=== PATIENT | female | born 1960 | race Caucasian/White ===

== ENCOUNTER 2017-02-13 12:38 | Emergency (ER) | payer MEDICARE, OTHER ==
[2017-02-13 12:54] VITALS: RESP 18
--- NOTE | 2017-02-13 13:40 | ED ---
Extremity Problem HPI - General Chief complaint: Extremity Problem,Nontraumatic Stated complaint: Knee Pain Time Seen by Provider: 02/13/17 13:08 Source: patient, RN notes reviewed, old records reviewed Mode of arrival: wheelchair Limitations: no limitations - History of Present Illness Initial comments: Is a 56-year-old female presents emergency Department with chief complaint chronic knee pain. Patient reports that she's been seen by Dr. Patiño and he only or not right for any narcotic pain medication. She reports that she recently discharged from [facility]. She reports that her pain seems to be worse with ambulation. She states that she's had no new injuries or falls or reasons to cause the new or worsening onset of bilateral knee pain. She denies any calf pain. Patient denies any recent fever, chills, shortness of breath, chest pain, back pain, abdominal pain, nausea vomiting, numbness or tingling, dysuria or hematuria, constipation or diarrhea, headaches or visual changes, or any other current symptoms - Related Data Home Medications Medication Instructions Recorded Confirmed ARIPiprazole [Abilify] 15 mg PO HS 11/20/15 04/24/16 Chlorthalidone [Chlorthalidone] 25 mg PO DAILY 11/20/15 04/24/16 Levothyroxine Sodium [Synthroid] 100 mcg PO DAILY 11/20/15 04/24/16 Omeprazole [PriLOSEC] 40 mg PO AC-BRKFST 11/20/15 04/24/16 Suvorexant [Belsomra] 20 mg PO HS 11/20/15 04/24/16 clonazePAM [KlonoPIN] 0.5 mg PO DAILY PRN 11/20/15 04/24/16 Previous Rx's Medication Instructions Recorded Ciprofloxacin HCl [Cipro] 500 mg PO Q12HR #14 tablet 04/25/16 Phenazopyridine [Pyridium] 100 mg PO TID #9 tablet 04/25/16 Acetaminophen-Codeine 300-30mg 1 tab PO Q6H PRN #12 tablet 02/13/17 [Tylenol #3] Allergies Allergy/AdvReac Type Severity Reaction Status Date / Time bupropion HCl Allergy Swelling Verified 02/13/17 12:54 [From Wellbutrin] Review of Systems ROS Statement: Those systems with pertinent positive or pertinent negative responses have been documented in the HPI. ROS Other: All systems not noted in ROS Statement are negative. Past Medical History Past Medical History: GERD/Reflux, Hypertension, Osteoarthritis (OA), Sleep Apnea/CPAP/BIPAP, Thyroid Disorder History of Any Multi-Drug Resistant Organisms: None Reported Past Surgical History: Section, Tonsillectomy Additional Past Surgical History / Comment(s): bunion left foot, left knee scope ,colonoscopy, egd Past Anesthesia/Blood Transfusion Reactions: No Reported Reaction Past Psychological History: Bipolar Smoking Status: Current every day smoker Past Alcohol Use History: Occasional Past Drug Use History: None Reported - Past Family History Mother Family Medical History: Myocardial Infarction ([place]) Father Family Medical History: Myocardial Infarction ([place]) Brother(s) Family Medical History: Mitral Valve Prolapse (MVP) General Exam - General Exam Comments Initial Comments: Well-appearing 56-year-old female. Patient is somewhat tearful and anxious on exam. Limitations: no limitations General appearance: alert, in no apparent distress Head exam: Present: atraumatic, normocephalic, normal inspection Eye exam: Present: normal appearance, PERRL, EOMI. Absent: scleral icterus, conjunctival injection, periorbital swelling ENT exam: Present: normal exam, mucous membranes moist Neck exam: Present: normal inspection Respiratory exam: Present: normal lung sounds bilaterally Cardiovascular Exam: Present: regular rate, normal rhythm, normal heart sounds. Absent: systolic murmur, diastolic murmur, rubs, gallop, clicks GI/Abdominal exam: Present: soft, normal bowel sounds. Absent: distended, tenderness, guarding, rebound, rigid Extremities exam: Present: normal inspection, other (Patient reports bilateral knee pain. Patient was seen ambulating with minimal limp to the bathroom. Patient has full range of motion. No evidence of erythema or significant swelling. She denies any recent trauma to cause New injury. ) Back exam: Present: normal inspection Neurological exam: Present: alert, oriented X3, CN II-XII intact Psychiatric exam: Present: normal affect, normal mood Skin exam: Present: warm, dry, intact, normal color. Absent: rash Course Vital Signs 02/13/17 12:51 Temperature 98.7 F Pulse Rate 73 Respiratory 18 Rate Blood Pressure 142/86 O2 Sat by Pulse 95 Oximetry Medical Decision Making - Medical Decision Making This is a 56-year-old female with chief complaint of chronic knee pain. He denies any recent injury Several cause of pain. Patient has full range of motion. No significant calf tenderness or knee tenderness to palpation. She was recently discharged from [facility]. She is somewhat tearful on exam. She reports that she is just been dealing with chronic depression and anxiety. She denies any suicidal or homicidal thoughts. She reports that Dr. Patiño will write her for tramadol. She reports that she's trying to see a second opinion. She states turning and manage her pain management. She reports that she's been having his chronic knee pain for many years. She's tried injections and talked about replacement in that is not what she would like to do. Patient was informed that I can only write her for a few Tylenol with codeine as well as taking tramadol for pain. Patient also advised anti-inflammatory medicine. Discussed close follow-up with orthopedic physician and given a name and number for other orthopedic physicians in the area. Patient agrees treatment plan will comply. Return parameters were discussed. Disposition Clinical Impression: Chronic pain of both knees Disposition: HOME SELF-CARE Condition: Good Instructions: Knee Pain (ED) Additional Instructions: Patient advised to take care of previous prescriptions for tramadol, anti- inflammatory medicine such as Motrin or Tylenol. Patient denies the intake for Tylenol 3 only for severe pain. He must follow-up with primary care physician for further pain medication. Prescriptions: Acetaminophen-Codeine 300-30mg [Tylenol #3] 1 tab PO Q6H PRN #12 tablet PRN Reason: Pain Referrals: Kelly Shook DO [Primary Care Provider] - 1-2 days Dom Edwards DO [Doctor of Osteopathic Medicine] - 1-2 days Time of Disposition: 13:37
[2017-02-13 13:44] VITALS: BP 132/84; PULSE 80; TEMP 98
== END 2017-02-13 13:52 | disposition home or self-care (01) ==
LOC: EC 12:38
DX: G89.29 Other chronic pain (principal); M25.562 Pain in left knee; M25.561 Pain in right knee; K21.9 Gastro-esophageal reflux disease without esophagitis; I10 Essential (primary) hypertension; M19.90 Unspecified osteoarthritis, unspecified site; E07.9 Disorder of thyroid, unspecified; F31.9 Bipolar disorder, unspecified; F17.200 Nicotine dependence, unspecified, uncomplicated; Z79.899 Other long term (current) drug therapy; Z88.8 Allergy status to other drugs, medicaments and biological substances
CPT/HCPCS: 99283

== ENCOUNTER → 2017-05-01 | Outpatient (CLI) | payer MEDICARE, OTHER ==
[2017-05-01 17:38] LABS: EKG EKG PERFORMED
[2017-05-01 17:57] LABS: Appearance,Urine Clear (Clear); Basophils # (A) 0.1 k/uL (0-0.2); Basophils % (A) 1 %; Bilirubin,Urine Negative (Negative); CH 33.5; CHCM 36.4; Eosinophils # (A) 0.4 k/uL (0-0.7); Eosinophils % (A) 3 %; Glucose,Urine (UA) Negative (Negative); HCT 47.6 % (34.0-46.0); HDW 2.65; HGB 16.6 gm/dL (11.4-16.0); Ketones,Urine Negative (Negative); Leukocyte Esterase,Urine Negative (Negative); Luc # (Auto) 0.19; Luc % (Auto) 2; Lymphocytes # (A) 3.2 k/uL (1.0-4.8); Lymphocytes % (A) 28 %; MCH 32.1 pg (25.0-35.0); MCHC 34.8 g/dL (31.0-37.0); MCV 92.3 fL (80.0-100.0); Mean Platelet Volume 7.2; Monocytes # (A) 0.6 k/uL (0-1.0); Monocytes % (A) 5 %; Neutrophils # (A) 6.8 k/uL (1.3-7.7); Neutrophils % (A) 61 %; Nitrite,Urine Negative (Negative); PH, Urine 5.5 (5.0-8.0); Protein,Urine Negative (Negative); RBC 5.16 m/uL (3.80-5.40); RDW 14.1 % (11.5-15.5); Specific Gravity,Urine 1.005 (1.001-1.035); UA Billing (MACRO vs. MICRO) CHEM; Urobilinogen,Urine <2.0 mg/dL (<2.0); WBC 11.2 k/uL (3.8-10.6); WBC (Perox) 11.03
[2017-05-01 18:04] LABS: Partial Thromboplastin Time 23.7 sec (22.0-30.0)
[2017-05-01 18:07] LABS: ALT 52 U/L (9-52); AST 24 U/L (14-36); Alkaline Phosphatase 73 U/L (38-126); Anion Gap 9 mmol/L; Blood Urea Nitrogen 20 mg/dL (7-17); Calcium 9.1 mg/dL (8.4-10.2); Carbon Dioxide 25 mmol/L (22-30); Chloride 103 mmol/L (98-107); Glucose 91 mg/dL (74-99); Non-African American GFR(MDRD) 48 (>60 ml/min/1.73 sqM); Potassium 3.7 mmol/L (3.5-5.1); Sodium 137 mmol/L (137-145); Total Bilirubin 0.3 mg/dL (0.2-1.3); Total Protein 7.2 g/dL (6.3-8.2)
== END | disposition home or self-care (01) ==
LOC: LABPAT 17:30
PROVIDERS: ATTEND Orthopaedic Surgery Sports Medicine
DX: Z01.812 Encounter for preprocedural laboratory examination (principal); Z01.818 Encounter for other preprocedural examination
CPT/HCPCS: 80053; 81003; 85025; 85610; 85730; 87070; 93005

== ENCOUNTER → 2017-05-06 | Outpatient (CLI) | payer MEDICARE, OTHER ==
--- NOTE | 2017-05-07 08:14 | MR ---
EXAMINATION TYPE: MR cspine/patricia wo con DATE OF EXAM: 05/06/2017 COMPARISON: NONE HISTORY: Neck and low back pain CONTRAST: Performed utilizing 0 mL intravenous MultiHance gadolinium contrast. TECHNIQUE: Multiplanar multiecho imaging on a 3.0 Heidi magnet is performed through the cervical spin e. FINDINGS: The craniovertebral junction is normal. Vertebral body alignment is normal. C7-T1: No focal disc herniation or significant disc bulge is evident. No spinal canal stenosis or n eural foraminal stenosis is present. C6-7: Broad-based disc bulge has mild anterior thecal sac flattening. No cord contact is evident. No spinal canal stenosis or neural foraminal stenosis is present.. C5-6: Broad-based disc bulge has mild anterior thecal sac compression. No spinal canal stenosis or ne ural foraminal stenosis present.. C4-5: There is mild left paracentral disc bulging with mild anterior thecal sac compression. No cord contact is evident. No spinal canal stenosis present. Mild foraminal narrowing is present.. C3-4: There is some mild left paracentral disc bulging with mild anterior thecal sac compression. No spinal canal stenosis stenosis present. There is some mild foraminal narrowing. C2-3: Broad-based central disc bulge has mild to moderate anterior thecal sac compression. No spinal canal stenosis or neural foraminal stenosis is present.. IMPRESSIONS: 1. Multilevel disc bulging with mild to moderate anterior thecal sac compression. No stenosis or cord contact is evident. 2. Mild foraminal narrowing. EXAMINATION TYPE: MR ashli/patricia wo con DATE OF EXAM: 05/06/2017 COMPARISON: NONE HISTORY: Neck and low back pain CONTRAST: 0 mL intravenous MultiHance. TECHNIQUE: Multiplanar, multisequence images of the lumbar spine were acquired. FINDINGS: Cord terminates at the L2 level. Endplate changes are noted at the anterior L2-3 disc leve l. L5-S1: No significant disc bulge or disc herniation. No spinal canal stenosis. No foraminal stenosi s. Facet hypertrophy is present.. L4-L5: No significant disc bulge or disc herniation. No spinal canal stenosis. No foraminal stenosi s. . L3-L4: No significant disc bulge or disc herniation. No spinal canal stenosis. No foraminal stenosi s. . L2-L3: Broad-based disc bulge is moderate anterior thecal sac flattening. No AP spinal canal stenosis present. Facet hypertrophy is posterior lateral thecal sac compression. Neural foramen are patent. L1-L2: No significant disc bulge or disc herniation. No spinal canal stenosis. No foraminal stenosi s. . T12-L1: No significant disc bulge or disc herniation. No spinal canal stenosis. No foraminal stenos is. . Disc desiccation is throughout the lumbar spine. IMPRESSION: 1. Disc bulging L2-3 with moderate anterior thecal sac flattening. No stenosis is present. 2. Facet hypertrophy L5-S1.
== END | disposition home or self-care (01) ==
LOC: RADMRIMAIN 12:37
PROVIDERS: ATTEND Physician Assistant
DX: M99.71 Connective tissue and disc stenosis of intervertebral foramina of cervical region (principal); M50.21 Other cervical disc displacement, high cervical region; G95.29 Other cord compression; M51.26 Other intervertebral disc displacement, lumbar region; M46.07 Spinal enthesopathy, lumbosacral region
CPT/HCPCS: 72141; 72148

== ENCOUNTER 2017-05-18 09:30 | Inpatient (IN) | payer MEDICARE, OTHER ==
[2017-05-04 13:36] VITALS: BMI 34.7
[~2017-05-18 09:30] MED LIST: ACETAMINOPHEN TAB 500 MG TAB PO ONE; DEXAMETHASONE SOD PHOSPHATE 10 MG/ML 1 ML VIAL IV ONE; HYDROmorphone 1 MG/ML 1 ML SYRINGE IVP PRN; LIDOCAINE 1% 20 ML VIAL (10MG/ML) FOR IV START INTRADERMA PRN; MELOXICAM 7.5 MG TAB PO ONE; MIDAZOLAM 2 MG/2 ML VIAL IV PRN; ONDANSETRON 4 MG/2 ML VIAL IVP ONE; SCOPOLAMINE 1.5MG/72HR PATCH TRANSDERM ONE; TRANEXAMIC ACID 1,000 MG in SODIUM CHLORIDE 0.9% 100 ML IVPB ONE; ceFAZolin 2 GM in SODIUM CHLORIDE 0.9% 100 ML IVPB ONE
[2017-05-18] MEDS ORDERED: ROPIVACAINE 246.25 MG, EPINEPHrine 0.5 MG, KETOROLAC 30 MG, cloNIDine HCL/PF 80 MCG, WA... MISCELLANE ONE ×5 (09:51)
[2017-05-18] MEDS ORDERED: LIDOCAINE 1% 20 ML VIAL (10MG/ML) FOR IV START INTRADERMA ONE (10:29)
[2017-05-18] MEDS: LACTATED RINGERS 1,000 ML IV SCH ×4 (10:59→20:55)
[2017-05-18] MEDS ORDERED: MIDAZOLAM 2 MG/2 ML VIAL IVP ONE (11:20)
[2017-05-18] MEDS ORDERED: fentaNYL (PF) 50 MCG/ML 2 ML AMP ONE (11:45)
[2017-05-18] MEDS ORDERED: MIDAZOLAM 2 MG/2 ML VIAL ONE (11:45)
[2017-05-18] MEDS ORDERED: PROPOFOL 10 MG/ML 20 ML VIAL IV ONE (11:45)
[2017-05-18] MEDS ORDERED: ROPIVACAINE 5 MG/ML 30 ML VIAL MISCELLANE ONE (12:22)
[2017-05-18] MEDS ORDERED: LACTATED RINGERS 1,000 ML IV ONE (13:17)
[2017-05-18] MEDS ORDERED: HYDROcodone/APAP 7.5-325MG 1 EACH TAB PO PRN (13:51)
[2017-05-18] MEDS ORDERED: MAGNESIUM HYDROXIDE 2,400 MG/10 ML CUP PO PRN (13:51)
[2017-05-18] MEDS ORDERED: traMADol 50 MG TAB PO PRN (13:51)
[2017-05-18] MEDS ORDERED: NALOXONE 0.4 MG/ML 1 ML VIAL IV PRN ×2 (13:51→15:39)
[2017-05-18] MEDS ORDERED: NA PHOS,M-B/NA PHOS,DI-BA 133 ML ENEMA RECTAL PRN (13:51)
[2017-05-18] MEDS ORDERED: DIAZEPAM 5 MG TAB PO PRN (13:51)
[2017-05-18] MEDS ORDERED: BISACODYL 10 MG SUPP RECTAL PRN (13:51)
[2017-05-18] MEDS ORDERED: hydrOXYzine PAMOATE 25 MG CAP PO PRN (13:51)
[2017-05-18] MEDS ORDERED: HYDROmorphone 1 MG/ML 1 ML SYRINGE IVP PRN ×2 (13:51)
[2017-05-18] MEDS ORDERED: ACETAMINOPHEN TAB 325 MG TAB PO PRN (13:51)
[2017-05-18] MEDS ORDERED: TEMAZEPAM 15 MG CAP PO PRN (13:51)
[2017-05-18] MEDS ORDERED: ONDANSETRON 4 MG/2 ML VIAL IVP PRN (13:51)
--- NOTE | 2017-05-18 14:21 | XR ---
EXAMINATION TYPE: XR knee limited LT, 2 VIEWS DATE OF EXAM ORDERED: 05/18/2017 HISTORY: Status post left knee arthroplasty. COMPARISON: None. FINDINGS: A left knee arthroplasty has been performed. Prosthetic elements appear in good position. There is subcutaneous and intra-articular air. IMPRESSION: STATUS POST LEFT ARTHROPLASTY.
[2017-05-18] MEDS ORDERED: diphenhydrAMINE 50 MG/ML 1 ML VIAL IVP PRN (15:39)
[2017-05-18] MEDS ORDERED: PROMETHAZINE INJ 6.25 MG in SODIUM CHLORIDE 0.9% 50 ML IVPB PRN (15:39)
[2017-05-18] MEDS ORDERED: METOCLOPRAMIDE 5 MG/ML 2 ML VIAL IVP PRN (15:39)
[2017-05-18] MEDS ORDERED: MORPHINE SULFATE 4 MG/ML SYRINGE IVP PRN (15:39)
[2017-05-18 17:16] VITALS: RESP 16
[2017-05-18] MEDS ORDERED: BUTALB/APAP/CAFF 50-325-40MG TAB PO PRN (17:18)
[2017-05-18] MEDS: clonazePAM 0.5 MG TAB PO SCH (20:48)
[2017-05-18] MEDS: ASPIRIN 325 MG TAB PO SCH (20:48)
[2017-05-18] MEDS: ARIPiprazole 15 MG TAB PO SCH (20:48)
[2017-05-18] MEDS: SENNOSIDES-DOCUSATE SODIUM 1 EACH TAB PO SCH (20:52)
[2017-05-18] MEDS: ceFAZolin 2 GM in SODIUM CHLORIDE 0.9% 100 ML IVPB SCH (20:58)
[2017-05-18] MEDS ORDERED: NON-FORMULARY DRUG (Suvorexant [Belsomra] 20 MG) PO SCH (21:00)
[2017-05-18] MEDS: NICOTINE POLACRILEX 2 MG GUM BUCCAL PRN (21:01)
[2017-05-18] MEDS: GABAPENTIN 300 MG CAP PO SCH (21:19)
[2017-05-19] MEDS: ceFAZolin 2 GM in SODIUM CHLORIDE 0.9% 100 ML IVPB SCH (03:34)
[2017-05-19] MEDS: LEVOTHYROXINE 100 MCG TAB PO SCH (06:03)
[2017-05-19] MEDS: NICOTINE POLACRILEX 2 MG GUM BUCCAL PRN ×5 (06:04→23:24)
[2017-05-19 07:30] LABS: Basophils # (A) 0.1 k/uL (0-0.2); Basophils % (A) 0 %; CH 33.5; CHCM 36.8; Eosinophils # (A) 0.1 k/uL (0-0.7); Eosinophils % (A) 1 %; HCT 37.7 % (34.0-46.0); HDW 2.71; Luc # (Auto) 0.18; Luc % (Auto) 1; Lymphocytes # (A) 2.6 k/uL (1.0-4.8); Lymphocytes % (A) 17 %; MCH 32.3 pg (25.0-35.0); MCHC 35.4 g/dL (31.0-37.0); MCV 91.3 fL (80.0-100.0); Mean Platelet Volume 7.7; Monocytes # (A) 0.9 k/uL (0-1.0); Monocytes % (A) 6 %; Neutrophils # (A) 11.3 k/uL (1.3-7.7); Neutrophils % (A) 75 %; RBC 4.14 m/uL (3.80-5.40); RDW 13.9 % (11.5-15.5); WBC 15.2 k/uL (3.8-10.6); WBC (Perox) 16.42
[2017-05-19 07:36] LABS: HGB 13.4 gm/dL (11.4-16.0)
--- NOTE | 2017-05-19 08:47 | P.PN ---
Progress Note - Text Date:05/19 Time:743am Patient is status post tkr. Patient seen this morning with VAS score of 0. c/o of pruritus, no c/o nausea/vomiting, comfortable and doing well.
[2017-05-19] MEDS: CHLORTHALIDONE 25 MG TAB PO SCH (09:02)
[2017-05-19] MEDS: ASPIRIN 325 MG TAB PO SCH ×2 (09:02→21:11)
[2017-05-19] MEDS: PANTOPRAZOLE 40 MG TABLET PO SCH (09:02)
[2017-05-19] MEDS: GABAPENTIN 300 MG CAP PO SCH ×3 (09:02→23:13)
[2017-05-19] MEDS: LACTATED RINGERS 1,000 ML IV SCH ×2 (09:03→17:47)
[2017-05-19] MEDS: HYDROcodone/APAP 7.5-325MG 1 EACH TAB PO PRN ×3 (09:03→20:30)
--- NOTE | 2017-05-19 10:43 | P.PN ---
Subjective Principal diagnosis: Status post left total knee arthroplasty Patient is seen at bedside this morning. She is postop day #1 from a left total knee arthroplasty. She has mild pain at the surgical site as expected but denies any new complaints. She denies numbness, tingling or calf pain. Review of systems is negative for fever, chills, chest pain, shortness of breath or other Objective - Vital Signs Vital signs: Vital Signs Temp 98.5 F 05/19/17 07:29 Pulse 57 L 05/19/17 07:29 Resp 16 05/19/17 01:00 BP 109/59 05/19/17 07:29 Pulse Ox 94 L 05/19/17 07:29 Intake & Output 05/18/17 05/19/17 05/19/17 18:59 06:59 18:59 Intake Total 1520 1400 Output Total 700 1500 Balance 820 -100 Intake: IV 1520 Intake, IV Titration 1400 Amount Lactated Ringers 1,000 ml 1100 @ 100 mls/hr IV .Q10H HUGO Rx#:[id number] ceFAZolin 2 gm In Sodium 300 Chloride 0.9% 100 ml @ 100 mls/hr IVPB Q8H HUGO Rx#:[id number] Output: Urine 600 1500 Estimated Blood Loss 100 Other: Voiding Method Indwelling Catheter - Exam Inspection reveals a benign surgical wound. There is no active bleeding or drainage. Neurovascular status is intact throughout the lower extremity with motor and sensation fully intact. Calf is soft and nontender. 2+ dorsalis pedis pulse and less than 2 second cap refill is present. - Constitutional General appearance: Present: no acute distress - Psychiatric Psychiatric: Present: A&O x's 3, appropriate affect, intact judgment & insight - Labs CBC & Chem 7: 05/19/17 06:39 Labs: Abnormal Lab Results - Last 24 Hours (Table) 05/19/17 Range/Units 06:39 WBC 15.2 H (3.8-10.6) k/uL Neutrophils # 11.3 H (1.3-7.7) k/uL Assessment and Plan (1) Osteoarthritis of left knee Narrative/Plan: She will continue with routine postop orthopedic protocol including pain management, wound care, physical therapy, DVT prophylaxis and medical management. Expect that she will discharge to home tomorrow Status: Acute Time with Patient: Less than 30
[2017-05-19] MEDS: MULTIVITAMINS, THERA 1 EACH TAB PO SCH (11:25)
[2017-05-19] MEDS: clonazePAM 0.5 MG TAB PO SCH ×2 (11:29→21:12)
[2017-05-19] MEDS: HYDROmorphone 1 MG/ML 1 ML SYRINGE IVP PRN ×3 (11:32→21:16)
[2017-05-19] MEDS ORDERED: HYDROmorphone 1 MG/ML 1 ML SYRINGE IVP STA (12:34)
--- NOTE | 2017-05-19 14:24 | P.CONS ---
History of Present Illness - Reason for Consult Consult date: 05/19/17 Medical management - Chief Complaint left knee osteoarthritis - History of Present Illness This is a 57-year-old female with past medical history noted below significant for severe osteoarthritis of the left knee that failed conservative management. Patient was admitted to the hospital and underwent an elective total left knee arthroplasty. She is postoperative day #1. She tolerated the procedure well. Her pain is relatively well-controlled. She was up with physical therapy earlier with no difficulty. I was asked to see her for medical management. Review of Systems Review of system: 14 points review of systems were obtained and were negative except to what were mentioned in the HPI. Past Medical History Past Medical History: GERD/Reflux, Hypertension, Osteoarthritis (OA), Sleep Apnea/CPAP/BIPAP, Thyroid Disorder Additional Past Medical History / Comment(s): no cpap History of Any Multi-Drug Resistant Organisms: None Reported Past Surgical History: Section, Tonsillectomy Additional Past Surgical History / Comment(s): bunion left foot, left knee scope ,colonoscopy, egd Past Anesthesia/Blood Transfusion Reactions: No Reported Reaction Smoking Status: Current every day smoker - Past Family History Mother Family Medical History: Myocardial Infarction ([place]) Father Family Medical History: Myocardial Infarction ([place]) Brother(s) Family Medical History: Mitral Valve Prolapse (MVP) Medications and Allergies Home Medications Medication Instructions Recorded Confirmed Type ARIPiprazole [Abilify] 15 mg PO HS 11/20/15 05/18/17 History Chlorthalidone [Chlorthalidone] 25 mg PO DAILY 11/20/15 05/18/17 History Levothyroxine Sodium [Synthroid] 100 mcg PO DAILY 11/20/15 05/18/17 History Omeprazole [PriLOSEC] 40 mg PO AC-BRKFST 11/20/15 05/18/17 History Suvorexant [Belsomra] 20 mg PO HS 11/20/15 05/18/17 History clonazePAM [KlonoPIN] 0.5 mg PO DAILY PRN 11/20/15 05/18/17 History Butalb/APAP/Caff 50-325-40Mg 1 tab PO Q4H PRN 05/04/17 05/18/17 History [Fioricet 50-325-40] Gabapentin [Neurontin] 300 mg PO TID 05/04/17 05/18/17 History Meloxicam 7.5 mg PO BID 05/04/17 05/18/17 History traMADol HCL [Ultram] 50 mg PO Q6H PRN 05/04/17 05/18/17 History Oxybutynin Chloride [Ditropan XL] 5 mg PO DAILY 05/18/17 05/18/17 History tiZANidine HCL [Zanaflex] 4 mg PO BID 05/18/17 05/18/17 History Aspirin 325 mg PO BID #60 tab 05/19/17 Rx Docusate [Colace] 100 mg PO BID #60 capsule 05/19/17 Rx HYDROcodone/APAP 7.5-325MG [[place] 1 - 2 each PO Q6HR PRN #90 tab 05/19/17 Rx 7.5-325] Allergies Allergy/AdvReac Type Severity Reaction Status Date / Time bupropion HCl Allergy tongue Verified 05/04/17 13:26 [From Wellbutrin] Swelling Physical Exam Vitals: Vital Signs Temp Pulse Pulse Pulse Resp BP Pulse Ox 05/19/17 08:00 58 L 57 L 16 05/19/17 07:29 98.5 F 57 L 109/59 94 L 05/19/17 01:00 97.0 F L 56 L 16 95/48 93 L 05/18/17 19:00 97.0 F L 63 16 82/55 94 L 05/18/17 16:45 108/74 05/18/17 16:30 139/63 05/18/17 16:15 104/57 05/18/17 16:00 113/57 05/18/17 15:45 120/59 05/18/17 15:30 116/56 05/18/17 15:15 113/67 05/18/17 15:00 98.1 F 54 L 16 119/61 91 L Intake and Output 05/18/17 05/19/17 05/19/17 22:59 06:59 14:59 Intake Total 400 1000 Output Total 1500 Balance 400 -500 Intake: Intake, IV Titration 400 1000 Amount Lactated Ringers 1,000 ml 300 800 @ 100 mls/hr IV .Q10H HUGO Rx#:[id number] ceFAZolin 2 gm In Sodium 100 200 Chloride 0.9% 100 ml @ 100 mls/hr IVPB Q8H HUGO Rx#:[id number] Output: Urine 1500 Other: Voiding Method Indwelling Catheter Indwelling Catheter Weight 97.522 kg Patient Weight 05/20/17 06:59 Weight 97.522 kg General: The patient is awake and alert, in no distress Eye: there is normal conjunctiva bilaterally. Neck: The neck is supple, there is no JVD. Cardiovascular: Normal S1-S2, no S3-S4, no murmurs. Respiratory: Lungs clear to auscultation bilaterally Gastrointestinal: Abdomen is soft, nontender Musculoskeletal: There is no pedal edema. Neurological:. Speech is normal. Skin: Skin is warm and dry Results CBC & Chem 7: 05/19/17 06:39 Labs: Abnormal Lab Results - Last 24 Hours (Table) 05/19/17 Range/Units 06:39 WBC 15.2 H (3.8-10.6) k/uL Neutrophils # 11.3 H (1.3-7.7) k/uL Assessment and Plan Plan: 1. Postoperative day #1 status post elective total left knee arthroplasty 2. DVT prophylaxis with full dose aspirin twice daily as directed by orthopedics 3. Hypothyroidism, maintained on Synthroid 4. Morbid obesity Today, I reviewed her medication list and lab work results. Continue current regimen. Thank you very much for the consultation. I will continue to follow up on the patient closely.
--- NOTE | 2017-05-19 15:04 | OP ---
OPERATIVE REPORT DATE OF PROCEDURE: 05/18/2017. PREOPERATIVE DIAGNOSIS:: Left knee osteoarthrosis. POSTOPERATIVE DIAGNOSIS:: Left knee osteoarthrosis. OPERATION:: Left total knee arthroplasty. ESTIMATED BLOOD LOSS:: 100 cc. SPECIMEN TAKEN:: SURGEON: Sg Patiño MD. DISTRICT DIRECTOR: Roderick Ramirez PA-C. ANESTHESIA: Spinal with sedation. ESTIMATED BLOOD LOSS: TOURNIQUET TIME: 47 minutes at 250 mmHg. COMPLICATIONS: None apparent. DRAINS: None. DISPOSITION: Post anesthesia care unit. INDICATIONS: Dav is a 57-year-old female with longstanding history of left knee pain. History and physical examination consistent with advanced left knee osteoarthrosis. She has been through significant nonoperative management to this point. Further treatment options were discussed and she has decided to go forward with a left total knee arthroplasty. The risks of procedure were discussed with her in detail. These risks include, but are not limited to, risk of infection, nerve damage, bleeding, pain and a small risk of deep vein thrombosis which could lead to a fatal pulmonary embolism. There is also a risk of loosening of the implant which could require revision operation. The patient understands these risks. All of her questions were answered to her satisfaction. An appropriate informed consent was obtained. NARRATIVE:: The patient is identified in the preoperative holding area. Surgical sites marked by both the patient and myself. She was given 2 g of Ancef IV for prophylactic purposes. She was then transferred to the operative suite, where she was placed supine on the operating room table. Spinal anesthetic was then administered and dosed by the anesthesia department without apparent complication. Examination under anesthesia was then performed. The patient was 2 to 3 degrees shy of full extension. She had 100 degrees of flexion in the medial collateral ligament, lateral collateral ligament. Posterior cruciate ligaments were stable. A tourniquet was then placed high on the left upper thigh, well-padded in preparation for surgery. The patient's left lower extremity then prepped and draped in the usual sterile fashion. A standard surgical pause was undertaken to ensure that we were operating on the correct site and that appropriate preoperative antibiotics had been given. All staff in the room were in agreement and we proceeded. The outlines of the patella were marked with a surgical pen. A planned 12 cm vertical incision centered over the patella was marked with a surgical pen. The leg was exsanguinated with an Esmarch dressing. The knee was then flexed and the tourniquet was inflated to 250 mmHg. The total tourniquet time for the procedure was 47 minutes. The incision was then made with a 10 blade scalpel. Dissection was carried down sharply to the overlying fascia. Great care was taken to minimize the skin flaps. The knee was then exposed using a standard medial parapatellar approach. A small cuff of quadriceps tendon was then left for suturing. She was in a bit of varus preoperatively. A very minimal medial release was then made. The superficial medial collateral ligament was dissected off of the bone around the posterior aspect of the proximal tibia. The medial meniscus was then excised as well. The lateral meniscus was also released anteriorly. The leg was then externally rotated. The patella was everted. The knee was flexed. The retractors were then placed to protect the collateral ligaments. I then proceeded to removed the infrapatellar fat pad. This was excised sharply tangentially with fibers of the patellar tendon. I then proceeded to remove the peripheral osteophytes. This was done with a rongeur. I then proceeded with the distal femoral resection. She did have near full extension. The planned 9-mm resection was then done. The femoral canal was then entered in midline of the femur with approximately 10 mm anterior to the origin of the posterior cruciate ligament. The kt was then advanced down the center of the femur and placed intramedullary. Based on preoperative radiographs, the angle between the anatomic and mechanical axis of the femur was approximately 4 to 5 degrees. The valgus angle of the distal femoral cutting guide was then set at 4 degrees for the left knee. The distal femoral cutting guide was then advanced over the intramedullary kt. This was seated firmly against the femur. I then as mentioned planned to take 9 mm off the distal femur. The cutting block was then secured onto the femur with pins. The jig was then removed and the distal femoral cut was made through the slot of the block. The pins were then removed from the distal femoral cut and the cutting block was removed. The accuracy of the distal femoral cut was checked with 2 flat bars. I then proceeded to femoral sizing. The posterior referencing sizing guide was held firmly against the resected distal surface of the femur. The posterior condyles were resting on the posterior plane of the guide. The sizing stylus was then placed onto the anterior femur. This was measured as a size 6. I then assessed for rotation. The plan was for 3 degrees of external rotation. Three degrees of external rotation was placed onto the jig. These holes were then marked. I then confirmed the rotation by 3 separate methods. This was done using the epicondylar axis as well as Whitesides line and posterior referencing. It was deemed that the external rotation was proper. I then went forward with placing the femoral cutting block. This was placed over the previously placed pin holes. The janee wing was then placed on the anterior slot to ensure that we would not notch the anterior femur with the anterior femoral cut. I then proceeded with the anterior femoral cut. This was flushed with the anterior cortex of the femur. The posterior cuts were then made followed by the anterior chamfer cut and then the posterior chamfer cut. The cutting block was then removed. Throughout the resection, the collateral ligaments were protected with retractors. I then placed a trial size 6 femur. It fit very nicely Medial-lateral and fit flush with the distal end of the femur. The drill holes were then made. I then proceeded with the tibial cut. I planned for a cruciate-retaining knee. The guide was placed in separate varus valgus and for slope. The height was set for approximate 2 mm resection from the medial tibial plateau, which was the lower side. I was happy with the alignment and the amount of resection. The cutting block was then pinned to the proximal tibia. The alignment kt was removed and the proximal tibia was resected with a reciprocating saw. Again this was done with retractors protecting the collateral ligaments as well as the posterior cruciate ligament. I then proceeded to evaluate the flexion and extension gaps. A 10-mm block was placed. The flexion-extension gaps were equal. I then proceeded with resection of posterior osteophytes. She had very minimal posterior osteophytes. This was done using a curved osteotome. This resected the posterior osteophytes and posterior capsular stripping was also down off the posterior aspect of the femur. The osteophytes were then removed. I then proceeded with resection of the patella. The thickness of patella was measured using the caliper. The thickness was 22 mm. The thickness of the anticipated patellar dome was then taken into account. The resection was then performed and confirmed to be equal in 4 quadrants using a caliper. Approximately 14 mm of bone remained after the resection. A 29 x 8-mm standard patella trial was then placed. The holes were drilled. The trial was then placed. I then proceeded with sizing the tibial plate and a size D tibial plate fit very nicely. I then placed the trial femur with the tibial tray and patellar button. The 10-mm trial tibial insert was also placed. The components fit very nicely. She had a full extension and flexion. The extension and flexion gaps were equal and stable to both varus and valgus stress. The patella tracked appropriately. The tibial tray rotation was then marked with a Bovie. This was externally rotated properly. I then proceeded with tibial preparation. I first drilled the femoral holes and then removed the femoral component. The tibial tray was then set up for proper external rotation as well as medial lateral placement onto the tibia. It was then pinned into place. I then proceeded with punching the keel. I then decided to proceed with cementing of all of our components. The knee was thoroughly irrigated with sterile saline solution via pulse lavage. The lateral geniculate artery was identified and cauterized. All blood was removed from the bone of the tibia, femur and patella with pulse lavage. I then proceeded with cementing. Two packs of antibiotic bone cement were prepared on the back table by the medical or surgical instrument maker. I then proceeded to proceed with cementing the tibia first. The cement was impacted in the keel as well as deeply seated in the bone. A second coat of cement was then placed. The tibia was then impacted into place. Excess cement was removed with Cushings and jokers. I then proceeded with cementing of the femoral component. The femoral component was also cemented using standard technique. Excess cement was removed. A 10-mm trial insert was then placed into the knee. It was brought into full extension with a constant axial load placed until the cement had hardened. The patellar component was then cemented. This held firmly with a compressive device until the cement had dried. When the cement had dried, the knee was taken out of extension. All excess cement was removed from around the prosthesis. I then trialed the knee with a 10-mm insert. The flexion and extension gaps were appropriate. The knee was stable. It came into full extension. It was decided to go forward with a 10-mm cross-linked cruciate-retaining tibial insert. Polyethylene was then placed onto the tibial tray and locked. The knee was then reduced. The knee was again further irrigated with sterile saline solution with antibiotic added. The tourniquet was then deflated. The total tourniquet time for the procedure was 47 minutes at 250 mmHg of mercury. Final components were a Soila Persona size 6 cruciate-retaining femoral component, a size D tibial tray, a 10-mm medial congruent cruciate-retaining polyethylene insert and a 29 x 8-mm patella. I then proceeded to closure. Again, the knee was thoroughly irrigated. The quadriceps tendon and medial retinaculum were reapproximated with a #2 Ethibond suture. The extensor mechanism was then closed with a running #2 Quill suture. Subcutaneous tissues were then closed with 2-0 Vicryl interrupted suture. The skin was closed with a running 3-0 Quill suture. The Dermabond was then applied to the incision. Sterile compressive dressings were then applied. All sponge and needle counts were deemed correct prior to closure. The patient tolerated the procedure without apparent complication. She was transferred to the recovery room in stable condition. MMODL / BESSIEN: [id number] /
[2017-05-19] MEDS: OXYBUTYNIN XL 5 MG TAB.ER.24 PO SCH (20:31)
[2017-05-19] MEDS: ARIPiprazole 15 MG TAB PO SCH (21:12)
[2017-05-19] MEDS: SENNOSIDES-DOCUSATE SODIUM 1 EACH TAB PO SCH (23:18)
[2017-05-20] MEDS: HYDROmorphone 1 MG/ML 1 ML SYRINGE IVP PRN (02:18)
[2017-05-20] MEDS: HYDROcodone/APAP 7.5-325MG 1 EACH TAB PO PRN ×3 (03:42→15:51)
[2017-05-20] MEDS: LACTATED RINGERS 1,000 ML IV SCH ×2 (05:35→05:36)
--- NOTE | 2017-05-20 08:43 | P.DS ---
Providers Date of admission: 05/18/17 09:30 Expected date of discharge: 05/20/17 Attending physician: Sg Patiño Consults: 05/18/17 13:51 Consult Physician Routine Consulting Provider: Jeremy Jackson Consult Reason/Comments: post op medical management Do you want consulting provider notified?: Yes Primary care physician: Kelly Shook - Discharge Diagnosis(es) (1) Primary osteoarthritis of left knee Current Visit: Yes Status: Acute (2) S/P total knee arthroplasty Current Visit: Yes Status: Acute Hospital Course: This is a 57-year-old female with known history of degenerative arthritis of the left knee. The patient presents for evaluation. After discussion and consideration patient elects to proceed with total knee arthroplasty. The patient is seen preoperatively by Dr. Patiño and cleared for surgery. Patient is admitted to [facility] on 05/18/2017 for total knee arthroplasty. The procedures performed without complication or sequelae. The patient is doing well postoperatively. Labs and vital signs are stable on day of discharge. On day of discharge patient's knee incision is healing well. There is minimal erythema. There is mild drainage noted at this time. There is minimal soft tissue swelling to the knee. Patient has full foot and ankle motion without difficulty or pain. Neurovascular status to the left lower extremity is intact. Patient is discharged home in good condition. Please see med rec for accurate list of home medications. Plan - Discharge Summary New Discharge Prescriptions: New Aspirin 325 mg PO BID #60 tab Docusate [Colace] 100 mg PO BID #60 capsule HYDROcodone/APAP 7.5-325MG [[place] 7.5-325] 1 - 2 each PO Q6HR PRN #90 tab PRN Reason: Pain No Action ARIPiprazole [Abilify] 15 mg PO HS Levothyroxine Sodium [Synthroid] 100 mcg PO DAILY Chlorthalidone [Chlorthalidone] 25 mg PO DAILY clonazePAM [KlonoPIN] 0.5 mg PO DAILY PRN PRN Reason: Anxiety Suvorexant [Belsomra] 20 mg PO HS Omeprazole [PriLOSEC] 40 mg PO AC-BRKFST traMADol HCL [Ultram] 50 mg PO Q6H PRN PRN Reason: Pain Butalb/APAP/Caff 50-325-40Mg [Fioricet 50-325-40] 1 tab PO Q4H PRN PRN Reason: Headache Meloxicam 7.5 mg PO BID Gabapentin [Neurontin] 300 mg PO TID Oxybutynin Chloride [Ditropan XL] 5 mg PO DAILY tiZANidine HCL [Zanaflex] 4 mg PO BID Discharge Medication List ARIPiprazole [Abilify] 15 mg PO HS 11/20/15 [History] Chlorthalidone [Chlorthalidone] 25 mg PO DAILY 11/20/15 [History] Levothyroxine Sodium [Synthroid] 100 mcg PO DAILY 11/20/15 [History] Omeprazole [PriLOSEC] 40 mg PO AC-BRKFST 11/20/15 [History] Suvorexant [Belsomra] 20 mg PO HS 11/20/15 [History] clonazePAM [KlonoPIN] 0.5 mg PO DAILY PRN 11/20/15 [History] Butalb/APAP/Caff 50-325-40Mg [Fioricet 50-325-40] 1 tab PO Q4H PRN 05/04/17 [ History] Gabapentin [Neurontin] 300 mg PO TID 05/04/17 [History] Meloxicam 7.5 mg PO BID 05/04/17 [History] traMADol HCL [Ultram] 50 mg PO Q6H PRN 05/04/17 [History] Oxybutynin Chloride [Ditropan XL] 5 mg PO DAILY 05/18/17 [History] tiZANidine HCL [Zanaflex] 4 mg PO BID 05/18/17 [History] Aspirin 325 mg PO BID #60 tab 05/19/17 [Rx] Docusate [Colace] 100 mg PO BID #60 capsule 05/19/17 [Rx] HYDROcodone/APAP 7.5-325MG [[place] 7.5-325] 1 - 2 each PO Q6HR PRN #90 tab [Rx] Follow up Appointment(s)/Referral(s): [facility], [NON-STAFF] - Sg Patiño MD [STAFF PHYSICIAN] - 2 Weeks Activity/Diet/Wound Care/Special Instructions: Keep wound clean and dry Take meds as directed Follow-up with Dr. Patiño in office Weight-bear as tolerated May shower in 72 hours Discharge Disposition: HOME WITH HOME HEALTH SERVICES
[2017-05-20] MEDS: PANTOPRAZOLE 40 MG TABLET PO SCH (08:52)
[2017-05-20] MEDS: ASPIRIN 325 MG TAB PO SCH (08:52)
[2017-05-20] MEDS: CHLORTHALIDONE 25 MG TAB PO SCH (08:53)
[2017-05-20] MEDS: LEVOTHYROXINE 100 MCG TAB PO SCH (08:53)
[2017-05-20] MEDS: OXYBUTYNIN XL 5 MG TAB.ER.24 PO SCH (08:53)
[2017-05-20] MEDS: GABAPENTIN 300 MG CAP PO SCH (08:53)
[2017-05-20] MEDS: NICOTINE POLACRILEX 2 MG GUM BUCCAL PRN (08:57)
[2017-05-20] MEDS: clonazePAM 0.5 MG TAB PO SCH (08:57)
--- NOTE | 2017-05-20 11:42 | P.PN ---
Subjective Patient was resting in bed today. She is to be discharged later on today. Objective - Vital Signs Vital signs: Vital Signs Temp 99.4 F 05/20/17 07:00 Pulse 74 05/20/17 07:00 Resp 16 05/20/17 07:00 BP 137/74 05/20/17 07:00 Pulse Ox 95 05/20/17 09:00 Intake & Output 05/19/17 05/20/17 05/20/17 18:59 06:59 18:59 Intake Total 1550 Output Total 900 2100 Balance -900 -550 Weight 97.522 kg Intake: Oral 1550 Output: Urine 900 2100 Uretheral (Haq) 400 Other: Voiding Method Toilet Toilet Toilet # Voids 6 - Exam General: The patient is awake and alert, in no distress Eye: there is normal conjunctiva bilaterally. Neck: The neck is supple, there is no JVD. Cardiovascular: Normal S1-S2, no S3-S4, no murmurs. Respiratory: Lungs clear to auscultation bilaterally Gastrointestinal: Abdomen is soft, nontender Musculoskeletal: There is no pedal edema. Neurological:. Speech is normal. Skin: Skin is warm and dry - Labs CBC & Chem 7: 05/19/17 06:39 Assessment and Plan Plan: 1. Postoperative day #2 status post elective total left knee arthroplasty 2. DVT prophylaxis with full dose aspirin twice daily as directed by orthopedics 3. Hypothyroidism, maintained on Synthroid 4. Morbid obesity Patient is medically cleared for discharge. Please refer to the medication reconciliation note for medication list.
[2017-05-20] MEDS: MULTIVITAMINS, THERA 1 EACH TAB PO SCH (12:43)
[2017-05-20 15:04] VITALS: BP 137/80; PULSE 87; TEMP 98.2
== END 2017-05-20 16:30 | disposition home health service (06) | DRG 470 ==
LOC: 2ORMAIN 09:30 → 3SUR 13:50
PROVIDERS: ADMIT Orthopaedic Surgery Sports Medicine; ATTEND Orthopaedic Surgery Sports Medicine
PROC: 0SRD0J9 Replacement of Left Knee Joint with Synthetic Substitute, Cemented, Open Approach (ICD-10-PCS; principal; 2017-05-18 11:00)
DX: M17.12 Unilateral primary osteoarthritis, left knee (principal); E66.01 Morbid (severe) obesity due to excess calories; I10 Essential (primary) hypertension; M25.762 Osteophyte, left knee; K21.9 Gastro-esophageal reflux disease without esophagitis; G47.30 Sleep apnea, unspecified; E03.9 Hypothyroidism, unspecified; F17.200 Nicotine dependence, unspecified, uncomplicated; F31.9 Bipolar disorder, unspecified; F41.9 Anxiety disorder, unspecified; L29.9 Pruritus, unspecified; Z82.49 Family history of ischemic heart disease and other diseases of the circulatory system; Z90.49 Acquired absence of other specified parts of digestive tract; Z79.82 Long term (current) use of aspirin; Z79.899 Other long term (current) drug therapy; Z88.8 Allergy status to other drugs, medicaments and biological substances; Z79.1 Long term (current) use of non-steroidal anti-inflammatories (NSAID); Z86.19 Personal history of other infectious and parasitic diseases
CPT/HCPCS: 85025; 88300

== ENCOUNTER 2017-07-28 11:12 | Emergency (ER) | payer MEDICARE, OTHER ==
--- NOTE | 2017-07-28 11:32 | ED ---
General Adult HPI - General Chief complaint: Recheck/Abnormal Lab/Rx Stated complaint: low pulse Time Seen by Provider: 07/28/17 11:27 Source: patient, RN notes reviewed Mode of arrival: wheelchair Limitations: no limitations - History of Present Illness Initial comments: Patient is a 57-year-old female who presents emergency room today with a chief complaint of a low pulse. She does admit that she went to her psychiatrist's office earlier today for her routine appointment had her vitals taken there and was told that her pulse was slow to come here to the emergency room. Patient admits that other than that she's noticed that her tongue is been a little dry. She believes it may be due to medication of Klonopin the she began taking just 3 days ago. States she took this in the past without any problems. Patient denies any other complaints or symptoms. Patient denies any recent fever , chills, shortness of breath, chest pain, back pain, abdominal pain, nausea or vomiting, numbness or tingling, dysuria or hematuria, constipation or diarrhea, headaches or visual changes, or any other complaints. - Related Data Home Medications Medication Instructions Recorded Confirmed ARIPiprazole [Abilify] 15 mg PO HS 11/20/15 05/18/17 Chlorthalidone 25 mg PO DAILY 11/20/15 05/18/17 Levothyroxine Sodium [Synthroid] 100 mcg PO DAILY 11/20/15 05/18/17 Omeprazole [PriLOSEC] 40 mg PO AC-BRKFST 11/20/15 05/18/17 Suvorexant [Belsomra] 20 mg PO HS 11/20/15 05/18/17 clonazePAM [KlonoPIN] 0.5 mg PO DAILY PRN 11/20/15 05/18/17 Butalb/APAP/Caff 50-325-40Mg 1 tab PO Q4H PRN 05/04/17 05/18/17 [Fioricet 50-325-40] Gabapentin [Neurontin] 300 mg PO TID 05/04/17 05/18/17 Meloxicam 7.5 mg PO BID 05/04/17 05/18/17 Oxybutynin Chloride [Ditropan XL] 5 mg PO DAILY 05/18/17 05/18/17 Previous Rx's Medication Instructions Recorded Aspirin 325 mg PO BID #60 tab 05/19/17 Docusate [Colace] 100 mg PO BID #60 capsule 05/19/17 HYDROcodone/APAP 7.5-325MG [[place] 1 - 2 each PO Q6HR PRN #90 tab 05/19/17 7.5-325] Allergies Allergy/AdvReac Type Severity Reaction Status Date / Time bupropion HCl Allergy tongue Verified 07/28/17 11:19 [From Wellbutrin] Swelling Review of Systems ROS Statement: Those systems with pertinent positive or pertinent negative responses have been documented in the HPI. ROS Other: All systems not noted in ROS Statement are negative. Past Medical History Past Medical History: GERD/Reflux, Hypertension, Osteoarthritis (OA), Sleep Apnea/CPAP/BIPAP, Thyroid Disorder Additional Past Medical History / Comment(s): no cpap History of Any Multi-Drug Resistant Organisms: None Reported Past Surgical History: Section, Tonsillectomy Additional Past Surgical History / Comment(s): bunion left foot, left knee scope ,colonoscopy, egd Past Anesthesia/Blood Transfusion Reactions: No Reported Reaction Past Psychological History: Bipolar Smoking Status: Current every day smoker Past Alcohol Use History: None Reported Past Drug Use History: None Reported - Past Family History Mother Family Medical History: Myocardial Infarction ([place]) Father Family Medical History: Myocardial Infarction ([place]) Brother(s) Family Medical History: Mitral Valve Prolapse (MVP) General Exam - General Exam Comments Initial Comments: General: The patient is awake and alert, in no distress, and does not appear acutely ill. Eye: Pupils are equal, round and reactive to light, extra-ocular movements are intact. No nystagmus. There is normal conjunctiva bilaterally. No signs of icterus. Ears, nose, mouth and throat: There are moist mucous membranes and no oral lesions. Neck: The neck is supple, there is no tenderness or JVD. Cardiovascular: There is a regular rate and rhythm. No murmur, rub or gallop is appreciated. Respiratory: Lungs are clear to auscultation, respirations are non-labored, breath sounds are equal. No wheezes, stridor, rales, or rhonchi. Gastrointestinal: Soft, non-distended, non-tender abdomen without masses or organomegaly noted. There is no rebound or guarding present. No CVA tenderness. Bowel sounds are unremarkable. Musculoskeletal: Normal ROM, no tenderness. Strength 5/5. Sensation intact. Pulses equal bilaterally 2+. Neurological: A&O x 3. CN II-XII intact, There are no obvious motor or sensory deficits. Coordination appears grossly intact. Speech is normal. Skin: Skin is warm and dry and no rashes or lesions are noted. Psychiatric: Cooperative, appropriate mood & affect, normal judgment. Limitations: no limitations Course Vital Signs 07/28/17 11:16 Temperature 97.5 F L Pulse Rate 48 L Respiratory 18 Rate Blood Pressure 114/76 O2 Sat by Pulse 99 Oximetry EKG Findings - EKG Comments: EKG Findings:: EKG performed at 1152: Shows bradycardia at 42 bpm. AR interval 134. QRS 84. QT/QTC 488/407. No acute ST changes. Compared to previous EKG on 05/01/2017. Medical Decision Making - Medical Decision Making Patient's EKG reviewed here in the emergency room shows sinus bradycardia at 42 bpm. Compared to previous EKG on April 2017 showing no other changes. Results were discussed with attending physician Dr. Guerrero. On ambulation patient 's pulse does go up into the 60s. She is asymptomatic here in emergency room. Has no dizziness no lightheadedness. No chest pain or shortness of breath. This time patient will be discharged to follow-up the family doctor. She is advised return if any symptoms occur or for any other concerns. Disposition Clinical Impression: Bradycardia Disposition: HOME SELF-CARE Condition: Good Instructions: Bradycardia (ED) Additional Instructions: Please follow-up the family doctor over the next 1-2 days. Please return here to the emergency room physician any symptoms of dizziness lightheadedness as discussed or for any other concerns. Referrals: Bala Hinson DO [Primary Care Provider] - 1-2 days Time of Disposition: 12:20
[2017-07-28 12:30] VITALS: BP 125/59; PULSE 46; RESP 20; TEMP 96.9
== END 2017-07-28 12:28 | disposition home or self-care (01) ==
LOC: EC 11:12
DX: R00.1 Bradycardia, unspecified (principal); R68.2 Dry mouth, unspecified; I10 Essential (primary) hypertension; K21.9 Gastro-esophageal reflux disease without esophagitis; M19.90 Unspecified osteoarthritis, unspecified site; E07.9 Disorder of thyroid, unspecified; F31.9 Bipolar disorder, unspecified; Z79.1 Long term (current) use of non-steroidal anti-inflammatories (NSAID); Z79.899 Other long term (current) drug therapy; Z88.8 Allergy status to other drugs, medicaments and biological substances; Z87.898 Personal history of other specified conditions; Z82.49 Family history of ischemic heart disease and other diseases of the circulatory system
CPT/HCPCS: 93005; 99284

== ENCOUNTER → 2017-08-05 | Outpatient (CLI) | payer MEDICARE, OTHER ==
[2017-08-05 12:30] LABS: ALT 36 U/L (9-52); AST 19 U/L (14-36); Alkaline Phosphatase 91 U/L (38-126); Anion Gap 12 mmol/L; Blood Urea Nitrogen 16 mg/dL (7-17); Calcium 10.2 mg/dL (8.4-10.2); Carbon Dioxide 25 mmol/L (22-30); Chloride 102 mmol/L (98-107); Glucose 116 mg/dL (74-99); Non-African American GFR(MDRD) 52 (>60 ml/min/1.73 sqM); Potassium 3.6 mmol/L (3.5-5.1); Sodium 139 mmol/L (137-145); Total Bilirubin 0.4 mg/dL (0.2-1.3); Total Protein 8.2 g/dL (6.3-8.2)
[2017-08-05 12:43] LABS: Basophils % (A) 1 %; CH 30.9; CHCM 34.1; Eosinophils # (A) 0.2 k/uL (0-0.7); Eosinophils % (A) 3 %; HCT 49.2 % (34.0-46.0); HDW 2.53; HGB 16.5 gm/dL (11.4-16.0); Luc # (Auto) 0.08; Luc % (Auto) 1; Lymphocytes # (A) 2.9 k/uL (1.0-4.8); Lymphocytes % (A) 32 %; MCH 30.5 pg (25.0-35.0); MCHC 33.6 g/dL (31.0-37.0); MCV 90.8 fL (80.0-100.0); Mean Platelet Volume 7.4; Monocytes # (A) 0.5 k/uL (0-1.0); Monocytes % (A) 5 %; Neutrophils # (A) 5.3 k/uL (1.3-7.7); Neutrophils % (A) 59 %; RBC 5.42 m/uL (3.80-5.40); RDW 14.1 % (11.5-15.5); WBC 9.1 k/uL (3.8-10.6); WBC (Perox) 9.19
== END | disposition home or self-care (01) ==
LOC: LABWHC1 11:59
PROVIDERS: ATTEND Internal Medicine Gastroenterology
DX: B18.2 Chronic viral hepatitis C (principal)
CPT/HCPCS: 36415; 80053; 85025

== ENCOUNTER 2017-12-14 06:59 | Emergency (ER) | payer MEDICARE, OTHER ==
[2017-12-14 07:05] VITALS: BP 177/94; RESP 18
--- NOTE | 2017-12-14 07:45 | XR ---
EXAMINATION TYPE: XR chest 2V DATE OF EXAM: 12/14/2017 COMPARISON: NONE HISTORY: Shortness of breath and cough. TECHNIQUE: Frontal and lateral views of the chest are obtained. FINDINGS: There is chronic emphysematous change without suspicious focal air space opacity, pleural effusion, or pneumothorax seen. The cardiac silhouette size is within normal limits. The osseous s tructures are intact. IMPRESSION: Chronic emphysematous change without acute pulmonary process.
[2017-12-14] MEDS ORDERED: IPRATROPIUM-ALBUTEROL 3 ML NEB INHALATION STA (08:00)
[2017-12-14] MEDS ORDERED: PROMETHAZ-COD 6.25-10 MG/5 ML 5 ML CUP PO STA (08:00)
[2017-12-14] MEDS ORDERED: methylPREDNISolone SOD SUCCI 125 MG/2 ML VIAL IM ONE (08:00)
[2017-12-14] MEDS ORDERED: LEVOFLOXACIN 500 MG TAB PO STA (08:01)
--- NOTE | 2017-12-14 08:52 | ED ---
URI HPI - General Chief Complaint: Upper Respiratory Infection Stated Complaint: Cough Time Seen by Provider: 12/14/17 07:52 Source: patient, RN notes reviewed, old records reviewed Mode of arrival: ambulatory Limitations: no limitations - History of Present Illness Initial Comments: This patient is a 57 year old female with CC of cough, congestion and shortness of breath for one week. She reports her friend is also being seen today for similiar complaints. She is a smoker. She denies any fever or chills. She reports that she is wheezing. She reports left ear pain. She denies sore throat. It has been a productive cough. - Related Data Home Medications Medication Instructions Recorded Confirmed ARIPiprazole [Abilify] 15 mg PO HS 11/20/15 12/14/17 Chlorthalidone 50 mg PO DAILY 11/20/15 12/14/17 Levothyroxine Sodium [Synthroid] 100 mcg PO DAILY 11/20/15 12/14/17 Omeprazole [PriLOSEC] 40 mg PO AC-BRKFST 11/20/15 12/14/17 clonazePAM [KlonoPIN] 0.5 mg PO DAILY PRN 11/20/15 12/14/17 Butalb/APAP/Caff 50-325-40Mg 1 tab PO Q4H PRN 05/04/17 12/14/17 [Fioricet 50-325-40] Gabapentin [Neurontin] 300 mg PO TID 05/04/17 12/14/17 Ibuprofen [Motrin] 800 mg PO Q6H PRN 08/29/17 12/14/17 tiZANidine HCL [Zanaflex] 4 mg PO BID PRN 08/29/17 12/14/17 Previous Rx's Medication Instructions Recorded Albuterol Inhaler [Ventolin Hfa 1 - 2 puff INHALATION Q6HR PRN #1 12/14/17 Inhaler] inhaler Levofloxacin [Levaquin] 750 mg PO DAILY #5 tab 12/14/17 Promethazine/Dextromethorphan 5 ml PO TID #120 ml 12/14/17 [Phenergan DM Syrup] predniSONE 50 mg PO DAILY #5 tablet 12/14/17 Allergies Allergy/AdvReac Type Severity Reaction Status Date / Time bupropion HCl Allergy tongue Verified 12/14/17 07:52 [From Wellbutrin] Swelling Review of Systems ROS Statement: Those systems with pertinent positive or pertinent negative responses have been documented in the HPI. ROS Other: All systems not noted in ROS Statement are negative. Past Medical History Past Medical History: GERD/Reflux, Hypertension, Liver Disease, Osteoarthritis ( OA), Sleep Apnea/CPAP/BIPAP, Thyroid Disorder Additional Past Medical History / Comment(s): no cpap, hx. Hep. C-in remission History of Any Multi-Drug Resistant Organisms: None Reported Past Surgical History: Section, Orthopedic Surgery, Tonsillectomy Additional Past Surgical History / Comment(s): bunion left foot, left knee scope ,colonoscopy, egd, left knee replacement Past Anesthesia/Blood Transfusion Reactions: No Reported Reaction Past Psychological History: Bipolar Smoking Status: Current every day smoker Past Alcohol Use History: None Reported Past Drug Use History: None Reported - Past Family History Mother Family Medical History: Myocardial Infarction ([place]) Father Family Medical History: Myocardial Infarction ([place]) Brother(s) Family Medical History: Mitral Valve Prolapse (MVP) General Exam - General Exam Comments Initial Comments: This is a well appearing 57 year old female, no distress. Limitations: no limitations General appearance: alert, in no apparent distress Head exam: Present: atraumatic, normocephalic, normal inspection Eye exam: Present: normal appearance, PERRL, EOMI. Absent: scleral icterus, conjunctival injection, periorbital swelling ENT exam: Present: normal exam, mucous membranes moist Neck exam: Present: normal inspection. Absent: tenderness, meningismus, lymphadenopathy Respiratory exam: Present: wheezes. Absent: respiratory distress, rales, rhonchi, stridor Cardiovascular Exam: Present: regular rate, normal rhythm, normal heart sounds. Absent: systolic murmur, diastolic murmur, rubs, gallop, clicks GI/Abdominal exam: Present: soft, normal bowel sounds. Absent: distended, tenderness, guarding, rebound, rigid Psychiatric exam: Present: normal affect, normal mood Skin exam: Present: warm, dry, intact, normal color. Absent: rash Course Vital Signs 12/14/17 12/14/17 12/14/17 07:00 08:14 08:22 Temperature 97.9 F Pulse Rate 82 82 88 Respiratory 18 Rate Blood Pressure 177/94 O2 Sat by Pulse 95 Oximetry 12/14/17 09:07 Temperature 98 F Pulse Rate 80 Respiratory 18 Rate Blood Pressure O2 Sat by Pulse 97 Oximetry Medical Decision Making - Medical Decision Making This is a 57 year old femael with cough and congestion for one week. She has wheezing noted bialterally. She was given IM solumedrol, breathing treatment with improvement. She has a normal CXR. At this time will treat patient with steriods, antibiotics, cough syrup and inhaler. All questions answered and return parameters discussed. - Radiology Data Radiology results: report reviewed (CXR was reviewed and shows no pneumonia. Normal CXR. ) Disposition Clinical Impression: Bronchitis Disposition: HOME SELF-CARE Condition: Good Instructions: Upper Respiratory Infection (ED), Acute Bronchitis (ED) Additional Instructions: Patient advised to follow-up with primary care provider. Use the inhaler and cough syrup as directed. Start taking the antibiotics and steroids again tomorrow. Return to the emergency department if any alarming signs or symptoms occur. Prescriptions: Albuterol Inhaler [Ventolin Hfa Inhaler] 1 - 2 puff INHALATION Q6HR PRN #1 inhaler PRN Reason: Shortness Of Breath Levofloxacin [Levaquin] 750 mg PO DAILY #5 tab predniSONE 50 mg PO DAILY #5 tablet Promethazine/Dextromethorphan [Phenergan DM Syrup] 5 ml PO TID #120 ml Referrals: Kelly Shook DO [Primary Care Provider] - 1-2 days Time of Disposition: 08:50
[2017-12-14 09:14] VITALS: PULSE 80; TEMP 98
--- NOTE | 2017-12-15 07:16 | CDI ---
Documentation Clarification OP Dear Lali Felix PA-C Please do addendum to ED report that provides Need ER H &P,Physical Exam, MDM Thank you, Genie [employer] If you have any questions, please contact Planning Division Superintendent at [phone] [facility]
== END 2017-12-14 09:07 | disposition home or self-care (01) ==
LOC: EC 06:59
DX: J40 Bronchitis, not specified as acute or chronic (principal); K21.9 Gastro-esophageal reflux disease without esophagitis; I10 Essential (primary) hypertension; M19.90 Unspecified osteoarthritis, unspecified site; E07.9 Disorder of thyroid, unspecified; F31.9 Bipolar disorder, unspecified; F17.200 Nicotine dependence, unspecified, uncomplicated; Z88.8 Allergy status to other drugs, medicaments and biological substances; Z79.899 Other long term (current) drug therapy
CPT/HCPCS: 99284; 96372; 94640; 71046; J2930

== ENCOUNTER → 2018-04-09 | Outpatient (CLI) | payer MEDICARE, OTHER ==
--- NOTE | 2018-04-09 16:51 | BD ---
EXAMINATION TYPE: Axial Bone Density DATE OF EXAM: 04/09/2018 COMPARISON: NONE CLINICAL HISTORY: 57-year-old female postmenopausal screening without HRT Height: 5 FT 5 IN Weight: 214 FRAX RISK QUESTIONS: History of Fracture in Adulthood: YES Secondary Osteoporosis: 3. Menopause before 45: YES 5. Chronic liver disease: HEPATITIS C REMISSION Current Tobacco Use: YES RISK FACTORS HISTORY OF: History of Wrist Fracture: YES LEFT When: 8 YEARS AGO Postmenopausal woman: AGE 47 Lost more than 2 inches in height since high school: YES Poor Health: FAIR MEDICATIONS: Thyroid Medications: YES Which medication: SYNTHROID How Lon YEARS Additional Medications: SYNTHROID, HYDROCHLOROTHIAZIDE, POTASSIUM, PRILOSEC, NORCO, CLONIPIN,ABILIFY , NEURONTIN, PAIN MEDS, Additional History: EXAM MEASUREMENTS: Bone mineral densitometry was performed using the nothingGrinder System. Bone mineral density as measured about the Lumbar spine is: ----- L1-L4(G/cm2): 1.113 T Score Values are as follows: ----- L2: -2.0 ----- L3: 0.1 ----- L4: 0.2 ----- L1-L4: -0.6 [facility] Bone mineral density about the R hip (g/cm2): 0.920 Bone mineral density about the L hip (g/cm2): 0.857 T Score values are as follows: -----R Neck: -0.8 -----L Neck: -1.3 -----R Total: 0.0 -----L Total: -0.7 [facility] IMPRESSION: Osteopenia (T Score between -2.5 and -1). There is slightly increased risk of fracture and the patient may be considered for treatment. Re-Screen 2-5 years. NOTE: T-SCORE=SD OF THE YOUNG ADULT MEAN.
--- NOTE | 2018-04-11 10:53 | MM ---
Reason for exam: screening (asymptomatic). Last mammogram was performed 6 years and 3 months ago. History: Patient is postmenopausal. Physical Findings: A clinical breast exam by your physician is recommended on an annual basis and results should be correlated with mammographic findings. MG 3D Screening Mammo W/Cad Bilateral CC and MLO view(s) were taken. Prior study comparison: December 30, 2011, mammogram. October 22, 2009, mammogram. The breast tissue is heterogeneously dense. This may lower the sensitivity of mammography. There is no discrete abnormality. No significant changes when compared with prior studies. ASSESSMENT: Negative, BI-RAD 1 RECOMMENDATION: Routine screening mammogram of both breasts in 1 year.
== END | disposition home or self-care (01) ==
LOC: RADMAMWWP 09:55
PROVIDERS: ATTEND Family Medicine
DX: Z12.31 Encounter for screening mammogram for malignant neoplasm of breast (principal); M85.80 Other specified disorders of bone density and structure, unspecified site; Z78.0 Asymptomatic menopausal state
CPT/HCPCS: 77063; 77067; 77080

== ENCOUNTER → 2018-06-20 | Outpatient (CLI) | payer MEDICARE, OTHER | LOC: LABWHC1 07:44 | PROVIDERS: ATTEND Orthopaedic Surgery | DX: A49.9 Bacterial infection, unspecified (principal); R79.82 Elevated C-reactive protein (CRP) | CPT/HCPCS: 36415; 85652; 86140 ==

== ENCOUNTER 2018-09-07 07:54 | Emergency (ER) | payer MEDICARE, OTHER ==
[2018-09-07 08:00] VITALS: RESP 18; TEMP 96.9
[2018-09-07] MEDS ORDERED: SODIUM CHLORIDE 0.9% 1,000 ML IV ONE (08:23)
[2018-09-07] MEDS ORDERED: KETOROLAC 30 MG/ML 1 ML VIAL IVP STA (08:23)
[2018-09-07] MEDS ORDERED: COLCHICINE 0.6 MG EACH PO STA (08:27)
[2018-09-07 08:39] LABS: Basophils % (A) 0 %; Eosinophils # (A) 0.4 k/uL (0-0.7); Eosinophils % (A) 3 %; HCT 45.6 % (34.0-46.0); HGB 16.2 gm/dL (11.4-16.0); Lymphocytes % (A) 18 %; MCH 31.3 pg (25.0-35.0); MCHC 35.5 g/dL (31.0-37.0); MCV 88.1 fL (80.0-100.0); Mean Platelet Volume 6.7; Monocytes # (A) 0.7 k/uL (0-1.0); Monocytes % (A) 6 %; Neutrophils # (A) 7.7 k/uL (1.3-7.7); Neutrophils % (A) 71 %; Platelet Count 216 k/uL (150-450); RBC 5.18 m/uL (3.80-5.40); RDW 12.4 % (11.5-15.5); WBC 10.9 k/uL (3.8-10.6)
--- NOTE | 2018-09-07 08:40 | ED ---
Lower Extremity Injury HPI - General Chief Complaint: Extremity Injury, Lower Stated Complaint: Foot Pain Time Seen by Provider: 09/07/18 08:10 Source: patient, RN notes reviewed Mode of arrival: ambulatory Limitations: no limitations - History of Present Illness Initial Comments: 58-year-old female presents emergency Department chief complaint of right foot swelling. Patient states she believes she has a bunion. Patient noticed that the redness is spreading on her foot. Patient states that it's very painful to light touch or when she is walking. Patient denies any history of gout. Patient denies any trauma. Patient denies fever, chills, Pain, leg swelling. Patient states she has no renal disease that she knows about though she states that she currently seeing urology for increased urine output. Patient denies any dietary changes no new medications. - Related Data Home Medications Medication Instructions Recorded Confirmed Chlorthalidone 50 mg PO DAILY 11/20/15 09/07/18 Levothyroxine Sodium [Synthroid] 100 mcg PO DAILY 11/20/15 09/07/18 Omeprazole [PriLOSEC] 40 mg PO AC-BRKFST 11/20/15 09/07/18 clonazePAM [KlonoPIN] 0.5 mg PO DAILY PRN 11/20/15 09/07/18 Butalb/APAP/Caff 50-325-40Mg 1 tab PO Q4H PRN 05/04/17 09/07/18 [Fioricet 50-325-40] Gabapentin [Neurontin] 300 mg PO TID 05/04/17 09/07/18 tiZANidine HCL [Zanaflex] 4 mg PO BID PRN 08/29/17 09/07/18 ARIPiprazole [Abilify] 30 mg PO DAILY 09/07/18 09/07/18 Desvenlafaxine Succinate 25 mg PO DAILY 09/07/18 09/07/18 [Desvenlafaxine Succinate ER] HYDROcodone/APAP 7.5-325MG [Jber 1 tab PO TID 09/07/18 09/07/18 7.5-325] Loratadine 10 mg PO DAILY 09/07/18 09/07/18 Magnesium 200 mg PO DAILY 09/07/18 09/07/18 Potassium Chloride ER [K-Dur 10] 10 meq PO DAILY 09/07/18 09/07/18 Previous Rx's Medication Instructions Recorded Albuterol Inhaler [Ventolin Hfa 1 - 2 puff INHALATION Q6HR PRN #1 12/14/17 Inhaler] inhaler Indomethacin [Indocin] 50 mg PO TID #30 capsule 09/07/18 Allergies Allergy/AdvReac Type Severity Reaction Status Date / Time bupropion HCl Allergy tongue Verified 09/07/18 08:49 [From Wellbutrin] Swelling Review of Systems ROS Statement: Those systems with pertinent positive or pertinent negative responses have been documented in the HPI. ROS Other: All systems not noted in ROS Statement are negative. Past Medical History Past Medical History: GERD/Reflux, Hypertension, Liver Disease, Osteoarthritis ( OA), Sleep Apnea/CPAP/BIPAP, Thyroid Disorder Additional Past Medical History / Comment(s): no cpap, hx. Hep. C-in remission History of Any Multi-Drug Resistant Organisms: None Reported Past Surgical History: Section, Orthopedic Surgery, Tonsillectomy Additional Past Surgical History / Comment(s): bunion left foot, left knee scope ,colonoscopy, egd, left knee replacement Past Anesthesia/Blood Transfusion Reactions: No Reported Reaction Past Psychological History: Bipolar Smoking Status: Current every day smoker Past Alcohol Use History: None Reported Past Drug Use History: None Reported - Past Family History Mother Family Medical History: Myocardial Infarction ([place]) Father Family Medical History: Myocardial Infarction ([place]) Brother(s) Family Medical History: Mitral Valve Prolapse (MVP) General Exam Limitations: no limitations General appearance: alert, in no apparent distress Head exam: Present: atraumatic, normocephalic, normal inspection Respiratory exam: Present: normal lung sounds bilaterally. Absent: respiratory distress, wheezes, rales, rhonchi, stridor Cardiovascular Exam: Present: regular rate, normal rhythm, normal heart sounds. Absent: systolic murmur, diastolic murmur, rubs, gallop, clicks Extremities exam: Present: other (Right foot there is erythema noted from the first MTP spreading towards the fourth MTP region, there is moderate tenderness with palpation, pedal pulses equal bilaterally, there is no ankle tenderness no calf tenderness.) Skin exam: Present: warm, dry, intact Course Vital Signs 09/07/18 07:57 Temperature 96.9 F L Pulse Rate 75 Respiratory 18 Rate Blood Pressure 131/85 O2 Sat by Pulse 99 Oximetry Medical Decision Making - Medical Decision Making 58-year-old female present for right foot pain, redness and swelling. Patient has elevated uric acid and clinical gout. There is no signs of secondary infection no fracture. Patient will be started on indomethacin. Patient advised to stick 2. Restricted diet. Patient follow-up PCP and return for any worsening symptoms. - Lab Data Result diagrams: 09/07/18 08:29 09/07/18 08:29 Lab Results 09/07/18 09/07/18 Range/Units 08:29 08:29 WBC 10.9 H (3.8-10.6) k/uL RBC 5.18 (3.80-5.40) m/uL Hgb 16.2 H (11.4-16.0) gm/dL Hct 45.6 (34.0-46.0) % MCV 88.1 (80.0-100.0) fL MCH 31.3 (25.0-35.0) pg MCHC 35.5 (31.0-37.0) g/dL RDW 12.4 (11.5-15.5) % Plt Count 216 (150-450) k/uL Neutrophils % 71 % Lymphocytes % 18 % Monocytes % 6 % Eosinophils % 3 % Basophils % 0 % Neutrophils # 7.7 (1.3-7.7) k/uL Lymphocytes # 2.0 (1.0-4.8) k/uL Monocytes # 0.7 (0-1.0) k/uL Eosinophils # 0.4 (0-0.7) k/uL Basophils # 0.0 (0-0.2) k/uL Sodium 139 (137-145) mmol/L Potassium 3.8 (3.5-5.1) mmol/L Chloride 104 (98-107) mmol/L Carbon Dioxide 25 (22-30) mmol/L Anion Gap 10 mmol/L BUN 18 H (7-17) mg/dL Creatinine 0.67 (0.52-1.04) mg/dL Est GFR (CKD-EPI)AfAm >90 (>60 ml/min/1.73 sqM) Est GFR (CKD-EPI)NonAf >90 (>60 ml/min/1.73 sqM) Glucose 124 H (74-99) mg/dL Uric Acid 9.2 H (3.7-7.4) mg/dL Calcium 9.6 (8.4-10.2) mg/dL C-Reactive Protein <5.0 (<10.0) mg/L Disposition Clinical Impression: Gout of right foot Disposition: HOME SELF-CARE Condition: Stable Instructions: Gout (ED), Low Purine Diet (ED) Additional Instructions: Please return to the Emergency Department if symptoms worsen or any other concerns. Prescriptions: Indomethacin [Indocin] 50 mg PO TID #30 capsule Is patient prescribed a controlled substance at d/c from ED?: No Referrals: Kelly Shook DO [Primary Care Provider] - 1-2 days Time of Disposition: 09:23
--- NOTE | 2018-09-07 08:57 | XR ---
EXAMINATION TYPE: XR foot complete RT DATE OF EXAM: 09/07/2018 CLINICAL HISTORY: pain TECHNIQUE: Frontal, lateral and oblique images of the right foot are obtained. COMPARISON: None. FINDINGS: There is no acute fracture/dislocation evident. The joint spaces appear within normal harrison its. The overlying soft tissue appears unremarkable. Plantar calcaneal spur formation noted. IMPRESSION: There is no acute fracture or dislocation. ICD 10 NO FRACTURE, INITIAL EVALUATION
[2018-09-07 09:20] LABS: Anion Gap 10 mmol/L; Blood Urea Nitrogen 18 mg/dL (7-17); C Reactive Protein <5.0 mg/L (<10.0); Calcium 9.6 mg/dL (8.4-10.2); Carbon Dioxide 25 mmol/L (22-30); Chloride 104 mmol/L (98-107); Glucose 124 mg/dL (74-99); Potassium 3.8 mmol/L (3.5-5.1); Sodium 139 mmol/L (137-145); Uric Acid 9.2 mg/dL (3.7-7.4)
[2018-09-07] MEDS ORDERED: ACET/COD 300 MG/30 MG STARTER PACK 6 TAB BTL PO STA (09:23)
[2018-09-07 09:34] VITALS: BP 136/75; PULSE 59
== END 2018-09-07 09:33 | disposition home or self-care (01) ==
LOC: EC 07:54
DX: M10.071 Idiopathic gout, right ankle and foot (principal); K21.9 Gastro-esophageal reflux disease without esophagitis; I10 Essential (primary) hypertension; M19.90 Unspecified osteoarthritis, unspecified site; E07.9 Disorder of thyroid, unspecified; Z86.19 Personal history of other infectious and parasitic diseases; F31.9 Bipolar disorder, unspecified; F17.200 Nicotine dependence, unspecified, uncomplicated; Z79.899 Other long term (current) drug therapy; Z88.8 Allergy status to other drugs, medicaments and biological substances; Z53.29 Procedure and treatment not carried out because of patient's decision for other reasons
CPT/HCPCS: 36415; 80048; 84550; 85025; 86140; 73630; 99283; 96374; 96361; J1885

== ENCOUNTER 2019-01-29 06:25 | Emergency (ER) | payer MEDICARE, OTHER ==
[2019-01-29 06:41] VITALS: RESP 18
[2019-01-29] MEDS ORDERED: COLCHICINE 0.6 MG EACH PO STA (07:16)
--- NOTE | 2019-01-29 07:18 | ED ---
Lower Extremity Injury HPI - General Chief Complaint: Extremity Injury, Lower Stated Complaint: Pain when walking Time Seen by Provider: 01/29/19 07:07 Source: patient, RN notes reviewed Mode of arrival: ambulatory Limitations: no limitations - History of Present Illness Initial Comments: 58-year-old female presents emergency department tingling right foot pain. Patient states that she has a history of down states that she started noticing some discomfort yesterday but worsened morning. Patient states her digit her first MTP is red, swollen and very tender. Patient states is exactly like she had in the past. Patient states she has been following the restricted diet. Patient denies any fevers or chills. Patient denies any trauma. Patient offers no other complaints. - Related Data Home Medications Medication Instructions Recorded Confirmed Chlorthalidone 50 mg PO DAILY 11/20/15 09/07/18 Levothyroxine Sodium [Synthroid] 100 mcg PO DAILY 11/20/15 09/07/18 Omeprazole [PriLOSEC] 40 mg PO AC-BRKFST 11/20/15 09/07/18 clonazePAM [KlonoPIN] 0.5 mg PO DAILY PRN 11/20/15 09/07/18 Butalb/APAP/Caff 50-325-40Mg 1 tab PO Q4H PRN 05/04/17 09/07/18 [Fioricet 50-325-40] Gabapentin [Neurontin] 300 mg PO TID 05/04/17 09/07/18 tiZANidine HCL [Zanaflex] 4 mg PO BID PRN 08/29/17 09/07/18 ARIPiprazole [Abilify] 30 mg PO DAILY 09/07/18 09/07/18 Desvenlafaxine Succinate 25 mg PO DAILY 09/07/18 09/07/18 [Desvenlafaxine Succinate ER] HYDROcodone/APAP 7.5-325MG [Vantage 1 tab PO TID 09/07/18 09/07/18 7.5-325] Loratadine 10 mg PO DAILY 09/07/18 09/07/18 Magnesium 200 mg PO DAILY 09/07/18 09/07/18 Potassium Chloride ER [K-Dur 10] 10 meq PO DAILY 09/07/18 09/07/18 Previous Rx's Medication Instructions Recorded Albuterol Inhaler [Ventolin Hfa 1 - 2 puff INHALATION Q6HR PRN #1 12/14/17 Inhaler] inhaler Indomethacin [Indocin] 50 mg PO TID #30 capsule 09/07/18 Lidocaine 5% Patch [Lidoderm 5% 1 patch TOPICAL DAILY #1 box 09/07/18 Patch] Indomethacin [Indocin] 50 mg PO TID #30 capsule 01/29/19 Allergies Allergy/AdvReac Type Severity Reaction Status Date / Time bupropion HCl Allergy tongue Verified 01/29/19 06:40 [From Wellbutrin] Swelling Review of Systems ROS Statement: Those systems with pertinent positive or pertinent negative responses have been documented in the HPI. ROS Other: All systems not noted in ROS Statement are negative. Past Medical History Past Medical History: GERD/Reflux, Hypertension, Liver Disease, Osteoarthritis (OA), Sleep Apnea/CPAP/BIPAP, Thyroid Disorder Additional Past Medical History / Comment(s): no cpap, hx. Hep. C-in remission History of Any Multi-Drug Resistant Organisms: None Reported Past Surgical History: Section, Orthopedic Surgery, Tonsillectomy Additional Past Surgical History / Comment(s): bunion left foot, left knee scope,colonoscopy, egd, left knee replacement , revision of left knee 11/2018 Past Anesthesia/Blood Transfusion Reactions: No Reported Reaction Past Psychological History: Bipolar Smoking Status: Current every day smoker Past Alcohol Use History: None Reported Past Drug Use History: None Reported - Past Family History Mother Family Medical History: Myocardial Infarction ([place]) Father Family Medical History: Myocardial Infarction ([place]) Brother(s) Family Medical History: Mitral Valve Prolapse (MVP) General Exam Limitations: no limitations General appearance: alert, in no apparent distress Head exam: Present: atraumatic, normocephalic, normal inspection Respiratory exam: Present: normal lung sounds bilaterally. Absent: respiratory distress, wheezes, rales, rhonchi, stridor Cardiovascular Exam: Present: regular rate, normal rhythm, normal heart sounds. Absent: systolic murmur, diastolic murmur, rubs, gallop, clicks Extremities exam: Present: other (Right foot there is tenderness at the first MTP, mild swelling and erythema neurovascular intact no open wounds or sores) Skin exam: Present: warm, dry, intact, normal color. Absent: rash Course Vital Signs 05/14/19 06:36 Temperature 98.6 F Pulse Rate 69 Respiratory 18 Rate Blood Pressure 129/79 O2 Sat by Pulse 96 Oximetry Medical Decision Making - Medical Decision Making 58-year-old female presented right foot pain. Patient has acute gout. Patient will be given Naprosyn the emergency Department discharge on indomethacin. Patient will continue follow restricted diet and return for any worsening symptoms. Disposition Clinical Impression: Gout of foot Disposition: HOME SELF-CARE Condition: Stable Instructions (If sedation given, give patient instructions): Gout (ED) Additional Instructions: Please return to the Emergency Department if symptoms worsen or any other concerns. Prescriptions: Indomethacin [Indocin] 50 mg PO TID #30 capsule Is patient prescribed a controlled substance at d/c from ED?: No Referrals: Kelly Shook DO [Primary Care Provider] - 1-2 days Time of Disposition: 07:18
[2019-01-29 07:49] VITALS: BP 117/74; PULSE 81; TEMP 98.1
== END 2019-01-29 07:48 | disposition home or self-care (01) ==
LOC: EC 06:25
DX: M10.071 Idiopathic gout, right ankle and foot (principal); K21.9 Gastro-esophageal reflux disease without esophagitis; I10 Essential (primary) hypertension; M19.90 Unspecified osteoarthritis, unspecified site; E07.9 Disorder of thyroid, unspecified; Z86.19 Personal history of other infectious and parasitic diseases; F31.9 Bipolar disorder, unspecified; F17.200 Nicotine dependence, unspecified, uncomplicated; Z79.890 Hormone replacement therapy; Z79.891 Long term (current) use of opiate analgesic; Z79.899 Other long term (current) drug therapy; Z88.8 Allergy status to other drugs, medicaments and biological substances
CPT/HCPCS: 99283

== ENCOUNTER → 2019-04-18 | Outpatient (CLI) | payer MEDICARE, OTHER ==
--- NOTE | 2019-04-22 09:31 | MM ---
Reason for exam: screening (asymptomatic). Last mammogram was performed 1 year ago. History: Patient is postmenopausal. Physical Findings: A clinical breast exam by your physician is recommended on an annual basis and results should be correlated with mammographic findings. MG 3D Screening Mammo W/Cad Bilateral CC and MLO view(s) were taken. Prior study comparison: April 09, 2018, bilateral MG 3d screening mammo w/cad. December 30, 2011, mammogram. There are scattered fibroglandular densities. No significant changes when compared with prior studies. ASSESSMENT: Benign, BI-RAD 2 RECOMMENDATION: Routine screening mammogram of both breasts in 1 year.
== END | disposition home or self-care (01) ==
LOC: RADMAMWWP 08:18
PROVIDERS: ATTEND Family Medicine
DX: Z12.31 Encounter for screening mammogram for malignant neoplasm of breast (principal)
CPT/HCPCS: 77063; 77067

== ENCOUNTER → 2019-06-17 | Outpatient (CLI) | payer MEDICARE, OTHER ==
[~2019-06-17] MED LIST changes: -ACETAMINOPHEN TAB 500 MG TAB PO ONE; -DEXAMETHASONE SOD PHOSPHATE 10 MG/ML 1 ML VIAL IV ONE; -HYDROmorphone 1 MG/ML 1 ML SYRINGE IVP PRN; -LIDOCAINE 1% 20 ML VIAL (10MG/ML) FOR IV START INTRADERMA PRN; -MELOXICAM 7.5 MG TAB PO ONE; -MIDAZOLAM 2 MG/2 ML VIAL IV PRN; -ONDANSETRON 4 MG/2 ML VIAL IVP ONE; +REGADENOSON 0.4 MG/5 ML SYRINGE IV ONE; -SCOPOLAMINE 1.5MG/72HR PATCH TRANSDERM ONE; -TRANEXAMIC ACID 1,000 MG in SODIUM CHLORIDE 0.9% 100 ML IVPB ONE; -ceFAZolin 2 GM in SODIUM CHLORIDE 0.9% 100 ML IVPB ONE
--- NOTE | 2019-06-17 12:01 | EST ---
EXERCISE STRESS AGE: 59 SEX: F HT: 5'6" WT: 232 PROTOCOL: Lexiscan Cardiolite Stress Test HEART RATE REST: 48 BLOOD PRESSURE REST: 107/51 MAXIMUM HEART RATE ACHIEVED: 59 MAXIMUM BLOOD PRESSURE: 107/51 85% MPHR: 139 100% MPHR: 163 INDICATIONS: Abnormal EKG. CLINICAL INFORMATION: Baseline rhythm is a sinus mechanism, rate 48, normal axis and intervals. T-wave inversion in inferolateral leads consistent with ischemia. Baseline blood pressure 107/51 mmHg. Patient received injection of Lexiscan. Electrocardiograph monitoring revealed no evidence of diagnostic ischemic ST deviation. Cardiolite was injected per protocol. CONCLUSION: 1. Nondiagnostic electrocardiograph stress testing. 2. Nuclear images will be reported separately. MMODL / IJN: [id number] /
--- NOTE | 2019-06-17 14:42 | NM ---
EXAMINATION TYPE: NM stress lexiscan cardiolite DATE OF EXAM: 06/17/2019 COMPARISON: NONE HISTORY: Angina pectoris TECHNIQUE: After the intravenous administration of 9.8 mCi Tc 99m Sestamibi - Cardiolite resting SPE CT images acquired 45 minutes post injection. The patient received 0.4mg Lexiscan, 24.8 mCi Tc 99m Sestamibi - Stress images obtained [address] injection FINDINGS: Review of stress and rest SPECT images demonstrates no distinct perfusion abnormality. Gated analysi s shows normal wall motion with an estimated left ventricular ejection fraction of 66 %. TID is eleva mark at 1.34. IMPRESSION: 1. Elevated TID, which can be seen in balanced 3 vessel ischemia or cardiomyopathy. 2. No scintigraphic evidence for reversible ischemia.
== END ==
LOC: RADNMMAIN 08:01
PROVIDERS: ATTEND Family Medicine
DX: R93.1 Abnormal findings on diagnostic imaging of heart and coronary circulation (principal); R94.31 Abnormal electrocardiogram [ECG] [EKG]
CPT/HCPCS: 93017; 78452; A9500; J2785

== ENCOUNTER 2019-08-14 11:22 | Emergency (ER) | payer MEDICARE, OTHER ==
[2019-08-14 11:28] VITALS: BP 139/92; PULSE 67; RESP 19; TEMP 97.9
[2019-08-14] MEDS ORDERED: HYDROcodone/APAP 10-325MG 1 EACH TAB PO ONE (11:50)
--- NOTE | 2019-08-14 12:15 | XR ---
EXAMINATION TYPE: XR knee complete RT DATE OF EXAM: 08/14/2019 COMPARISON: None available at this location of the right knee HISTORY: Braxton pop in knee TECHNIQUE: Three-view right knee FINDINGS: Tibial and femoral components are present. A joint effusion is not identified. There is a calcification superior to the patella of uncertain etiology. The inferior border is somewh at irregular suggesting this could be a fracture. However, the donor site expected at the superior pa tella is not clearly evident. Correlate with location of the patient's pain. IMPRESSION: 1. Clinical correlation recommended for pain at the superior patellar region. Consider avulsion frac ture of the patella.
--- NOTE | 2019-08-14 12:58 | ED ---
Extremity Problem HPI - General Chief complaint: Extremity Problem,Nontraumatic Stated complaint: rt knee injury Time Seen by Provider: 08/14/19 11:47 Source: patient, RN notes reviewed Mode of arrival: wheelchair Limitations: no limitations - History of Present Illness Initial comments: 59-year-old female presents emergency Department chief complaint of right knee pain. Patient states he was standing up and felt for cracks in her right knee. She states she feels in her patella. Patient states that she had knee surgery by Dr. Mcknight 6 weeks ago. Patient states she is doing well this point. Patient states that her orthopedic physician is out of the office. Patient denies any paresthesias. - Related Data Home Medications Medication Instructions Recorded Confirmed Chlorthalidone 50 mg PO DAILY 11/20/15 01/29/19 Levothyroxine Sodium [Synthroid] 100 mcg PO DAILY 11/20/15 01/29/19 Omeprazole [PriLOSEC] 40 mg PO AC-BRKFST 11/20/15 01/29/19 clonazePAM [KlonoPIN] 0.5 mg PO DAILY PRN 11/20/15 01/29/19 Butalb/APAP/Caff 50-325-40Mg 1 tab PO Q4H PRN 05/04/17 01/29/19 [Fioricet 50-325-40] Gabapentin [Neurontin] 300 mg PO TID 05/04/17 01/29/19 tiZANidine HCL [Zanaflex] 4 mg PO BID PRN 08/29/17 01/29/19 ARIPiprazole [Abilify] 30 mg PO DAILY 09/07/18 01/29/19 HYDROcodone/APAP 7.5-325MG [[place] 1 tab PO TID 09/07/18 01/29/19 7.5-325] Magnesium 200 mg PO DAILY 09/07/18 01/29/19 Potassium Chloride ER [K-Dur 10] 10 meq PO DAILY 09/07/18 01/29/19 Desvenlafaxine Succinate [Pristiq 50 mg PO DAILY 01/29/19 01/29/19 ER] Montelukast Sodium [Singulair] 10 mg PO HS 01/29/19 01/29/19 Previous Rx's Medication Instructions Recorded Albuterol Inhaler [Ventolin Hfa 1 - 2 puff INHALATION Q6HR PRN #1 12/14/17 Inhaler] inhaler Indomethacin [Indocin] 50 mg PO TID #30 capsule 01/29/19 Allergies Allergy/AdvReac Type Severity Reaction Status Date / Time bupropion HCl Allergy tongue Verified 01/29/19 07:17 [From Wellbutrin] Swelling Review of Systems ROS Statement: Those systems with pertinent positive or pertinent negative responses have been documented in the HPI. ROS Other: All systems not noted in ROS Statement are negative. Past Medical History Past Medical History: GERD/Reflux, Hypertension, Liver Disease, Osteoarthritis (OA), Sleep Apnea/CPAP/BIPAP, Thyroid Disorder Additional Past Medical History / Comment(s): no cpap, hx. Hep. C-in remission History of Any Multi-Drug Resistant Organisms: None Reported Past Surgical History: Section, Orthopedic Surgery, Tonsillectomy Additional Past Surgical History / Comment(s): bunion left foot, left knee scope,colonoscopy, egd, left knee replacement , revision of left knee 11/2018 Past Anesthesia/Blood Transfusion Reactions: No Reported Reaction Past Psychological History: Bipolar Smoking Status: Current every day smoker Past Alcohol Use History: None Reported Past Drug Use History: Marijuana - Past Family History Mother Family Medical History: Myocardial Infarction ([place]) Father Family Medical History: Myocardial Infarction ([place]) Brother(s) Family Medical History: Mitral Valve Prolapse (MVP) General Exam Limitations: no limitations General appearance: alert, in no apparent distress Head exam: Present: atraumatic, normocephalic, normal inspection Respiratory exam: Present: normal lung sounds bilaterally. Absent: respiratory distress, wheezes, rales, rhonchi, stridor Cardiovascular Exam: Present: regular rate, normal rhythm, normal heart sounds. Absent: systolic murmur, diastolic murmur, rubs, gallop, clicks Extremities exam: Present: other (Right leg limited range of motion there is tenderness over the patella, mild swelling noted neurovascular intact) Course Vital Signs 08/14/19 11:24 Temperature 97.9 F Pulse Rate 67 Respiratory 19 Rate Blood Pressure 139/92 O2 Sat by Pulse 97 Oximetry Medical Decision Making - Medical Decision Making 59-year-old female presented for right leg pain. X-ray shows patella fracture. Patient case discussed with on-call orthopedics recommends patient to be minimally weightbearing may use crutches or walker will be placed in knee immobilizer and will follow-up. Disposition Clinical Impression: Closed fracture of right patella Disposition: HOME SELF-CARE Condition: Stable Instructions (If sedation given, give patient instructions): Patellar Fracture (ED) Additional Instructions: Please return to the Emergency Department if symptoms worsen or any other concerns. Is patient prescribed a controlled substance at d/c from ED?: No Referrals: Radha Petty MD [Primary Care Provider] - 1-2 days Odin Mcknight MD [STAFF PHYSICIAN] - 1-2 days Time of Disposition: 12:58
== END 2019-08-14 13:10 | disposition home or self-care (01) ==
LOC: EC 11:22
DX: S82.001A Unspecified fracture of right patella, initial encounter for closed fracture (principal); K21.9 Gastro-esophageal reflux disease without esophagitis; I10 Essential (primary) hypertension; F31.9 Bipolar disorder, unspecified; E07.9 Disorder of thyroid, unspecified; G47.30 Sleep apnea, unspecified; F17.200 Nicotine dependence, unspecified, uncomplicated; Z79.890 Hormone replacement therapy; Z79.899 Other long term (current) drug therapy; Z88.8 Allergy status to other drugs, medicaments and biological substances; X58.XXXA Exposure to other specified factors, initial encounter
CPT/HCPCS: 73562; 99283; L1830

== ENCOUNTER → 2020-01-27 | Outpatient (CLI) | payer MEDICARE, OTHER | END | disposition home or self-care (01) | LOC: LABWHC1 10:47 | PROVIDERS: ATTEND Surgery | DX: U07.1 COVID-19 (principal) | CPT/HCPCS: 87635 ==

== ENCOUNTER 2020-01-29 10:55 | Observation (INO) | payer MEDICARE, OTHER ==
[2020-01-28 09:39] VITALS: BMI 37.4
[~2020-01-29 10:55] MED LIST changes: +ACETAMINOPHEN TAB 500 MG TAB PO ONE; +DEXAMETHASONE SOD PHOSPHATE 10 MG/ML 1 ML VIAL IV ONE; +HEPARIN SODIUM,PORCINE 5,000 UNIT/ML 1 ML VIAL SQ ONE; +LIDOCAINE 1% (10MG/ML) FOR IV START INTRADERMA PRN; +METOCLOPRAMIDE 5 MG/ML 2 ML VIAL IVP PRN; +ONDANSETRON 4 MG/2 ML VIAL IVP ONE; -REGADENOSON 0.4 MG/5 ML SYRINGE IV ONE
[2020-01-29] MEDS: LACTATED RINGERS 1,000 ML IV SCH (11:30)
--- NOTE | 2020-01-29 12:57 | P.GSHP ---
History of Present Illness H&P Date: 01/29/20 Chief Complaint: Right upper quadrant pain This a 59-year-old female who presents today for laparoscopic cholecystectomy. Patient points of right upper quadrant pain. Her recent HIDA scan shows abnormal ejection fraction Past Medical History Past Medical History: Asthma, GERD/Reflux, Hypertension, Liver Disease, Osteoarthritis (OA), Sleep Apnea/CPAP/BIPAP, Thyroid Disorder Additional Past Medical History / Comment(s): no cpap, hx. Hep. C-in remission, allergy induced asthma, frequent nausea & RUQ pain History of Any Multi-Drug Resistant Organisms: None Reported Past Surgical History: Section, Joint Replacement, Orthopedic Surgery, Tonsillectomy Additional Past Surgical History / Comment(s): bunion left foot, left knee scope,colonoscopy, egd, left knee replacement , revision of left knee 11/2018, right knee replaced, then revision of, then knee cap & implant removed Past Anesthesia/Blood Transfusion Reactions: No Reported Reaction Smoking Status: Current every day smoker - Past Family History Mother Family Medical History: Myocardial Infarction ([place]) Father Family Medical History: Myocardial Infarction ([place]) Brother(s) Family Medical History: Mitral Valve Prolapse (MVP) Medications and Allergies Home Medications Medication Instructions Recorded Confirmed Type Chlorthalidone 50 mg PO DAILY 11/20/15 01/29/20 History Levothyroxine Sodium [Synthroid] 100 mcg PO DAILY 11/20/15 01/29/20 History Omeprazole [PriLOSEC] 40 mg PO AC-BRKFST 11/20/15 01/29/20 History clonazePAM [KlonoPIN] 0.5 mg PO DAILY PRN 11/20/15 01/29/20 History Butalb/APAP/Caff 50-325-40Mg 1 tab PO Q4H PRN 05/04/17 01/29/20 History [Fioricet 50-325-40] Gabapentin [Neurontin] 300 mg PO TID 05/04/17 01/29/20 History Albuterol Inhaler (Mhu) [Ventolin 1 - 2 puff INHALATION Q6HR PRN #1 12/14/17 01/29/20 Rx Hfa Inhaler (Mhu)] inhaler ARIPiprazole [Abilify] 30 mg PO HS 09/07/18 01/29/20 History Magnesium 200 mg PO DAILY 09/07/18 01/29/20 History Potassium Chloride ER [K-Dur 10] 10 meq PO DAILY 09/07/18 01/29/20 History Desvenlafaxine Succinate [Pristiq 100 mg PO DAILY 01/29/19 01/29/20 History ER] Montelukast Sodium [Singulair] 10 mg PO HS 01/29/19 01/29/20 History Allopurinol [Zyloprim] 100 mg PO DAILY 01/28/20 01/29/20 History Cyclobenzaprine [Flexeril] 10 mg PO HS 01/28/20 01/29/20 History Docusate [Colace] 100 mg PO DAILY 01/28/20 01/29/20 History HYDROcodone/APAP 10-325MG [[place] 1 tab PO TID 01/28/20 01/29/20 History 10-325] Ondansetron [Zofran] 4 mg PO Q8HR PRN 01/28/20 01/29/20 History Allergies Allergy/AdvReac Type Severity Reaction Status Date / Time bupropion HCl Allergy tongue Verified 01/29/20 11:22 [From Wellbutrin] Swelling Surgical - Exam Vital Signs Temp Pulse Resp BP Pulse Ox 98.0 F 79 18 137/69 96 01/29/20 11:20 01/29/20 11:20 01/29/20 11:20 01/29/20 11:20 01/29/20 11:20 - General well developed, well nourished, no distress - Eyes PERRL - ENT normal pinna - Neck no masses - Respiratory normal expansion - Cardiovascular Rhythm: regular - Abdomen Abdomen: soft, non tender Assessment and Plan Assessment: Right upper quadrant pain Cholecystitis We'll perform laparoscopic cholecystectomy
[2020-01-29] MEDS ORDERED: LIDOCAINE 1% INJ 10MG/ML (20 ML MDV) ONE (13:01)
[2020-01-29] MEDS ORDERED: fentaNYL (PF) 50 MCG/ML 2 ML AMP ONE (13:01)
[2020-01-29] MEDS ORDERED: PROPOFOL 10 MG/ML 20 ML VIAL IV ONE (13:01)
[2020-01-29] MEDS ORDERED: GLYCOPYRROLATE 0.2 MG/ML 2 ML VIAL ONE (13:01)
[2020-01-29] MEDS ORDERED: MIDAZOLAM 2 MG/2 ML VIAL ONE (13:01)
[2020-01-29] MEDS ORDERED: ROCURONIUM BROMIDE 10 MG/ML 5 ML VIAL IV ONE (13:01)
[2020-01-29] MEDS ORDERED: KETOROLAC 30 MG/ML 1 ML VIAL ONE (13:01)
[2020-01-29] MEDS ORDERED: HYDROmorphone (PF) 1 MG/ML ONE (13:01)
[2020-01-29] MEDS ORDERED: SUCCINYLCHOLINE CHLORIDE 100 MG/5 ML SYR IV ONE (13:01)
[2020-01-29] MEDS ORDERED: NEOSTIGMINE 1 MG/ML 10 ML VIAL ONE (13:01)
[2020-01-29] MEDS ORDERED: BUPIVACAIN-EPI 0.25%-1:200,000 30 ML VIAL SQ ONE ×2 (13:21→13:26)
[2020-01-29] MEDS ORDERED: LACTATED RINGERS 1,000 ML IV ONE (13:53)
[2020-01-29] MEDS ORDERED: HYDROmorphone 0.5 MG/0.5 ML SYRINGE IVP PRN (13:53)
[2020-01-29] MEDS ORDERED: NALOXONE 0.4 MG/ML 1 ML VIAL IV PRN (13:53)
--- NOTE | 2020-01-29 14:01 | P.OP ---
Date of Procedure: 01/29/20 Preoperative Diagnosis: Chronic cholecystitis Postoperative Diagnosis: Chronic cholecystitis Cirrhosis Procedure(s) Performed: Laparoscopic cholecystectomy Anesthesia: LESLEY Surgeon: Glen Leahy Estimated Blood Loss (ml): 10 Pathology: other Condition: stable (All bladder) Disposition: PACU Description of Procedure: The patient was placed on the operating table. The patient received a general endotracheal tube anesthesia. The patients abdomen was prepped and draped in the usual sterile fashion. Through an infraumbilical stab incision, the fascia of the anterior abdominal wall was grasped with a pair of Kochers and then the Veress needle was placed in the peritoneal cavity. Position of the Veress needle was confirmed with positive drop test. The abdomen was then insufflated. After adequate insufflation, the 10 mm trocar was placed in the peritoneal cavity. Following this the laparoscope was placed in the peritoneal cavity. The patient was placed in the head-up, right side up position and then a 5 mm trocar was placed in the right lateral and right subcostal position under direct visualization. A 8 mm trocar was placed in the epigastric position. The liver appeared to be cirrhotic and enlarged. The gallbladder was enlarged and scarred with chronic inflammation The gallbladder was grasped in the fundus and infundibulum. Traction on the gallbladder was placed in the lateral and the cephalad positions. The triangle of Calot was visualized.. The cystic duct was bluntly dissected until the union of the cystic duct and common bile duct was seen. A critical view of safety was achieved. The cystic duct was then divided and sealed with the Harmonic scissors. A PDS Endoloop was then placed throughout the cystic duct stump. The cystic artery divided and sealed with the Harmonic scissors. The gallbladder was then removed from the liver bed using Harmonic scissors. The gallbladder was then extracted through the epigastric port site. Operative field was checked for any bleeding spots and Harmonic scissors was used to coagulate the liver bed. The abdomen was irrigated. The trocars were removed. The skin was closed using interrupted 3- 0 Vicryl suture. Dermabond dressing were applied. The patient tolerated the procedure well.
[2020-01-29] MEDS ORDERED: diphenhydrAMINE 50 MG/ML 1 ML VIAL IVP ONE (14:26)
[2020-01-29] MEDS: HYDROmorphone 0.5 MG/0.5 ML SYRINGE IVP PRN ×2 (14:34→14:40)
[2020-01-29] MEDS: KETOROLAC 30 MG/ML 1 ML VIAL IVP SCH ×4 (15:40→23:42)
[2020-01-29] MEDS: HYDROcodone/APAP 5-325MG 1 EACH TAB PO PRN (19:29)
[2020-01-29] MEDS ORDERED: BUTALB/APAP/CAFF 50-325-40MG TAB PO PRN (19:48)
[2020-01-29] MEDS ORDERED: clonazePAM 0.5 MG TAB PO PRN (19:48)
[2020-01-29] MEDS ORDERED: MONTELUKAST 10 MG TAB PO SCH (21:00)
[2020-01-29] MEDS ORDERED: CYCLOBENZAPRINE 10 MG TAB PO SCH (21:00)
[2020-01-29] MEDS ORDERED: ARIPiprazole 15 MG TAB PO SCH (21:00)
[2020-01-29] MEDS: GABAPENTIN 300 MG CAP PO SCH (21:34)
[2020-01-30] MEDS: HYDROcodone/APAP 5-325MG 1 EACH TAB PO PRN ×2 (01:41→08:47)
[2020-01-30] MEDS: KETOROLAC 30 MG/ML 1 ML VIAL IVP SCH (05:38)
[2020-01-30] MEDS: LACTATED RINGERS 1,000 ML IV SCH (06:01)
[2020-01-30] MEDS ORDERED: LEVOTHYROXINE 100 MCG TAB PO SCH (06:30)
[2020-01-30] MEDS ORDERED: PANTOPRAZOLE 40 MG TABLET PO SCH (07:30)
[2020-01-30] MEDS: GABAPENTIN 300 MG CAP PO SCH (07:42)
[2020-01-30] MEDS ORDERED: ALLOPURINOL 100 MG TAB PO SCH (09:00)
[2020-01-30] MEDS ORDERED: DESVENLAFAXINE SUCCINATE 50 MG TAB.ER.24H PO SCH (09:00)
[2020-01-30 13:02] VITALS: BP 130/75; PULSE 93; RESP 17; TEMP 98.2
--- NOTE | 2020-01-30 15:46 | P.DS ---
Providers Date of admission: 01/30/20 07:33 Expected date of discharge: 01/30/20 Attending physician: Glen Leahy Consults: 01/29/20 13:53 Consult Physician Routine Consulting Provider: Ze Baez Consult Reason/Comments: Medical management Do you want consulting provider notified?: Yes Primary care physician: Ze Baez MD Hospital Course: 59-year-old female who underwent laparoscopic cholecystectomy with Dr. Leahy on 01/29/2020 secondary to chronic cholecystitis. Patient is doing well postoperatively without any recommendations. She is tolerating diet without nausea or vomiting. Pain is controlled on oral medications. Vital signs are stable. She is stable for discharge home today. Please see EMR for further hospital course details. Discharge Diagnosis 1. Chronic cholecystitis Nurse practitioner note has been reviewed by physician. Signing provider agrees with the documented findings, assessment, and plan of care. Patient Condition at Discharge: Stable Plan - Discharge Summary Discharge Rx Participant: Yes New Discharge Prescriptions: Continue HYDROcodone/APAP 10-325MG [[place] 10-325] 1 tab PO TID No Action Levothyroxine Sodium [Synthroid] 100 mcg PO DAILY Chlorthalidone 50 mg PO DAILY clonazePAM [KlonoPIN] 0.5 mg PO DAILY PRN PRN Reason: Anxiety Omeprazole [PriLOSEC] 40 mg PO AC-BRKFST Butalb/APAP/Caff 50-325-40Mg [Fioricet 50-325-40] 1 tab PO Q4H PRN PRN Reason: Headache Gabapentin [Neurontin] 300 mg PO TID Magnesium 200 mg PO DAILY Potassium Chloride ER [K-Dur 10] 10 meq PO DAILY ARIPiprazole [Abilify] 30 mg PO HS Montelukast Sodium [Singulair] 10 mg PO HS Desvenlafaxine Succinate [Pristiq ER] 100 mg PO DAILY Ondansetron [Zofran] 4 mg PO Q8HR PRN PRN Reason: Nausea Docusate [Colace] 100 mg PO DAILY Cyclobenzaprine [Flexeril] 10 mg PO HS Allopurinol [Zyloprim] 100 mg PO DAILY Albuterol Inhaler [Ventolin Hfa Inhaler] 1 - 2 puff INHALATION RT-Q6H PRN PRN Reason: Shortness Of Breath Discharge Medication List Chlorthalidone 50 mg PO DAILY 11/20/15 [History] Levothyroxine Sodium [Synthroid] 100 mcg PO DAILY 11/20/15 [History] Omeprazole [PriLOSEC] 40 mg PO AC-BRKFST 11/20/15 [History] clonazePAM [KlonoPIN] 0.5 mg PO DAILY PRN 11/20/15 [History] Butalb/APAP/Caff 50-325-40Mg [Fioricet 50-325-40] 1 tab PO Q4H PRN 05/04/17 [History] Gabapentin [Neurontin] 300 mg PO TID 05/04/17 [History] ARIPiprazole [Abilify] 30 mg PO HS 09/07/18 [History] Magnesium 200 mg PO DAILY 09/07/18 [History] Potassium Chloride ER [K-Dur 10] 10 meq PO DAILY 09/07/18 [History] Desvenlafaxine Succinate [Pristiq ER] 100 mg PO DAILY 01/29/19 [History] Montelukast Sodium [Singulair] 10 mg PO HS 01/29/19 [History] Allopurinol [Zyloprim] 100 mg PO DAILY 01/28/20 [History] Cyclobenzaprine [Flexeril] 10 mg PO HS 01/28/20 [History] Docusate [Colace] 100 mg PO DAILY 01/28/20 [History] HYDROcodone/APAP 10-325MG [[place] 10-325] 1 tab PO TID 01/28/20 [History] Ondansetron [Zofran] 4 mg PO Q8HR PRN 01/28/20 [History] Albuterol Inhaler [Ventolin Hfa Inhaler] 1 - 2 puff INHALATION RT-Q6H PRN 01/30/20 [History] Follow up Appointment(s)/Referral(s): Glen Leahy MD [STAFF PHYSICIAN] - 02/06/20 2:40 pm Patient Instructions/Handouts: *Surgery [facility] - Laparoscopic Cholecystectomy Discharge Instructions, Surgical Site Infections (DC) Activity/Diet/Wound Care/Special Instructions: No driving while taking [place] No lifting over 10 pounds You may shower. No soaking or tub baths Very light activity until you are reevaluated at your follow up appointment with your surgeon Discharge Disposition: HOME SELF-CARE
== END 2020-01-30 14:20 | disposition home or self-care (01) ==
LOC: OR 10:55 → 5NMEDONC 14:26 → OR 01-30 07:33 → 5NMEDONC 01-30 07:33
PROVIDERS: ADMIT Surgery; ATTEND Surgery
DX: K81.1 Chronic cholecystitis (principal); I10 Essential (primary) hypertension; K74.60 Unspecified cirrhosis of liver; M19.90 Unspecified osteoarthritis, unspecified site; K21.9 Gastro-esophageal reflux disease without esophagitis; J45.998 Other asthma; E07.9 Disorder of thyroid, unspecified; F17.210 Nicotine dependence, cigarettes, uncomplicated; G47.33 Obstructive sleep apnea (adult) (pediatric); E66.01 Morbid (severe) obesity due to excess calories; Z68.41 Body mass index [BMI] 40.0-44.9, adult; Z86.19 Personal history of other infectious and parasitic diseases; Z98.891 History of uterine scar from previous surgery; Z96.652 Presence of left artificial knee joint; Z96.651 Presence of right artificial knee joint; Z79.890 Hormone replacement therapy; Z79.899 Other long term (current) drug therapy; Z79.891 Long term (current) use of opiate analgesic; Z99.89 Dependence on other enabling machines and devices; Z88.8 Allergy status to other drugs, medicaments and biological substances; Z82.49 Family history of ischemic heart disease and other diseases of the circulatory system
CPT/HCPCS: 47562; 88304; G0378; J2250; J1200; J1644; J1100; J2710; J0690; J2405; J2001; J3010; J1885 ×2; J1170 ×2; J0330; J2704